=== PATIENT | female | born 1940 | race American Indian/Alaskan Native ===

== ENCOUNTER 2017-09-05 14:14 | Outpatient (CLI) | payer MEDICARE ==
--- NOTE | 2017-09-05 15:24 | XRay Report ---
ROUTINE CHEST, TWO VIEWS: HISTORY: Cough. The trachea, heart, mediastinal contour, lung mccracken and bony thorax are unremarkable. IMPRESSION: Unremarkable chest x-ray.
== END 2017-09-05 14:15 | disposition home or self-care (01) ==
LOC: XRAY 14:14
PROVIDERS: ATTEND Family Medicine
DX: J44.9 Chronic obstructive pulmonary disease, unspecified (principal)
CPT/HCPCS: 71046

== ENCOUNTER 2019-05-10 11:15 | Inpatient (IN) | payer MEDICARE ==
[2019-05-10] MEDS ORDERED: ASPIRIN 325 MG TAB PO ONE (11:51)
--- NOTE | 2019-05-10 11:53 | Event Note ---
ED Screening Note Date of service: 05/10/19 Time: 11:50 ED Screening Note: This is a 79 y.o. F. that presents to the ER with chest pain and SOB for 2 days. Current smoker PMH of COPD This initial assessment/diagnostic orders/clinical plan/treatment(s) is/are subject to change based on patients health status, clinical progression and re- assessment by fellow clinical providers in the ED. Further treatment and workup at subsequent clinical providers discretion. Patient/guardian urged not to elope from the ED as their condition may be serious if not clinically assessed and managed. Initial orders include: Labs, ekg, & cxr
--- NOTE | 2019-05-10 12:31 | XRay Report ---
PA AND LATERAL CXR HISTORY: Chest pain radiating to the upper gastric area, started 2 days ago. COMPARISON: 09/05/2018. FINDINGS: Cardiomediastinal silhouette: Normal cardiac size. Normal mediastinal contours. Lungs: There is a large right pneumothorax. No evidence of midline shift currently. There is resultan t collapse of the majority of the right lung. Pulmonary vascularity: Normal. Support hardware: None. Additional findings: None. IMPRESSION: Large right pneumothorax. These findings were discussed with the ER doctor (Dr. Smith) at 12:25 on 05/10/2019. Signer Name: Lionel Dickey MD Signed: 05/10/2019 12:26 PM Workstation Name: [id number]
[2019-05-10] MEDS ORDERED: LIDOCAINE 1%/EPINEPHRINE 1:100,000 VIAL (20 ML) INFILTRATI ONE ×2 (12:36→12:39)
[2019-05-10] MEDS ORDERED: SODIUM CHLORIDE 0.9% 1000 ML 1,000 ML IV ONE (12:39)
[2019-05-10] MEDS ORDERED: fentaNYL 100 MCG/2 ML INJ IV ONE ×2 (12:46→13:40)
[2019-05-10] MEDS ORDERED: PROPOFOL 200 MG/20 ML VIAL IV ONE (12:47)
--- NOTE | 2019-05-10 12:52 | Emergency Department Report ---
ED General Adult HPI - General Chief complaint: Chest Pain Stated complaint: CHEST TIGHTNESS/COUGH/SOB Time Seen by Provider: 05/10/19 11:50 Source: patient Mode of arrival: Wheelchair Limitations: No Limitations - History of Present Illness Initial comments: 79 female states she had a forceful sneeze 2-3 evenings ago. The following morning she woke up with anterior lower chest pain bilaterally. By today she was becoming somewhat short of breath. She does still smoke. She states that she ate one Frito chip prior to arrival and didn't drink or eat anything since last night. Despite the chest pain and shortness of breath as well as a history of previous cardiac stent, she did not seek medical evaluation. -: Gradual (chest pain and shortness of breath for 1-2 days) Severity scale (0 -10): 0 Associated Symptoms: denies other symptoms - Related Data Allergies Allergy/AdvReac Type Severity Reaction Status Date / Time No Known Allergies Allergy Unverified 05/10/19 11:18 ED Review of Systems ROS: Stated complaint: CHEST TIGHTNESS/COUGH/SOB Other details as noted in HPI Constitutional: denies: chills, fever Eyes: denies: eye pain, eye discharge, vision change ENT: denies: ear pain, throat pain Respiratory: shortness of breath. denies: cough, wheezing Cardiovascular: chest pain. denies: palpitations Endocrine: no symptoms reported Gastrointestinal: denies: abdominal pain, nausea, diarrhea Genitourinary: denies: urgency, dysuria, discharge Musculoskeletal: denies: back pain, joint swelling, arthralgia Skin: denies: rash, lesions Neurological: denies: headache, weakness, paresthesias Psychiatric: denies: anxiety, depression Hematological/Lymphatic: denies: easy bleeding, easy bruising ED Past Medical Hx - Past Medical History Additional medical history: [place] - Surgical History Additional Surgical History: THYROID SURGERY - Social History Smoking Status: Current Every Day Smoker Substance Use Type: Alcohol ED Physical Exam - General Limitations: No Limitations General appearance: alert, in no apparent distress - Head Head exam: Present: atraumatic, normocephalic - Eye Eye exam: Present: normal appearance - ENT ENT exam: Present: mucous membranes moist - Neck Neck exam: Present: normal inspection. Absent: tenderness, meningismus - Respiratory Respiratory exam: Present: other (very decreased sounds on the right normal in the left. Somewhat tachypnea.). Absent: respiratory distress - Cardiovascular Cardiovascular Exam: Present: regular rate, normal rhythm. Absent: systolic murmur, diastolic murmur, rubs, gallop - GI/Abdominal GI/Abdominal exam: Present: soft, normal bowel sounds. Absent: distended, tenderness, guarding, rebound - Extremities Exam Extremities exam: Present: normal inspection - Back Exam Back exam: Present: normal inspection - Neurological Exam Neurological exam: Present: alert, oriented X3 - Psychiatric Psychiatric exam: Present: normal affect, normal mood - Skin Skin exam: Present: warm, dry, intact, normal color. Absent: rash ED Course Vital Signs 05/10/19 05/10/19 11:50 12:42 Temperature 97.9 F 97.7 F Pulse Rate 91 H 95 H Respiratory 18 43 H Rate Blood Pressure 128/86 Blood Pressure 167/99 [Left] O2 Sat by Pulse 97 96 Oximetry - Chest Tube Chest Tube Location: mid axillary line Size of [place]ht[place] Tube (cm): 1 (heimlich catheter) Chest Tube Procedure: betadine prep Anesthesia: 1% Lidocaine w/ Epi Bernal of Air [place]: No Number of Attempts: 1 Post Procedure CXR?: Yes Progress: Postprocedure chest x-ray showed the catheter little bit too far towards the apex. It was withdrawn about 3-4 cm. It was redressed sterilely. Postprocedural x-ray showed good position. ED Medical Decision Making - Lab Data Result diagrams: 05/10/19 12:16 05/10/19 12:16 Laboratory Results - last 24 hr 05/10/19 05/10/19 05/10/19 12:16 12:16 13:39 WBC 4.4 L RBC 4.61 Hgb 14.8 H Hct 44.0 H MCV 96 MCH 32 MCHC 34 RDW 13.6 Plt Count 239 Lymph % (Auto) 40.5 H [place] % (Auto) 13.8 H Eos % (Auto) 2.8 Baso % (Auto) 2.7 H Lymph # 1.8 [place] # 0.6 Eos # 0.1 Baso # 0.1 Seg Neutrophils % 40.2 Seg Neutrophils # 1.8 PT INR APTT Sodium 138 Potassium 3.9 Chloride 100.1 Carbon Dioxide 23 Anion Gap 19 BUN 9 Creatinine 0.7 Estimated GFR > 60 BUN/Creatinine Ratio 13 Glucose 91 Calcium 9.2 Magnesium Total Bilirubin Direct Bilirubin Indirect Bilirubin AST ALT Alkaline Phosphatase Total Creatine Kinase 107 CK-MB (CK-2) 1.7 CK-MB (CK-2) Rel Index 1.5 Troponin T < 0.010 < 0.010 NT-Pro-B Natriuret Pep Total Protein Albumin Albumin/Globulin Ratio 05/10/19 05/10/19 13:39 13:58 WBC RBC Hgb Hct MCV MCH MCHC RDW Plt Count Lymph % (Auto) [place] % (Auto) Eos % (Auto) Baso % (Auto) Lymph # [place] # Eos # Baso # Seg Neutrophils % Seg Neutrophils # PT 14.6 INR 1.12 APTT 29.7 Sodium Potassium Chloride Carbon Dioxide Anion Gap BUN Creatinine Estimated GFR BUN/Creatinine Ratio Glucose Calcium Magnesium 2.00 Total Bilirubin 0.20 Direct Bilirubin < 0.2 Indirect Bilirubin 0.0 AST 25 ALT 18 Alkaline Phosphatase 59 Total Creatine Kinase CK-MB (CK-2) CK-MB (CK-2) Rel Index Troponin T NT-Pro-B Natriuret Pep 115.8 Total Protein 7.6 Albumin 3.7 L Albumin/Globulin Ratio 0.9 - EKG Data -: EKG Interpreted by Ma EKG shows normal: sinus rhythm Rate: normal - EKG Data When compared to previous EKG there are: no significant change Interpretation: no acute changes, other (. She is consistent with PREDNISONE, LVH, PVCS, POOR R-WAVE PROGRESSION, NONSPECIFIC ST-T WAVE CHANGES COULD BE CONSISTENT WITH LVH) - Radiology Data Radiology results: image reviewed (greater than 90% pneumothorax on the right, post-chest tube insertion lung reinflated atelectasis right lower lobe,) Critical care attestation.: If time is entered above; I have spent that time in minutes in the direct care of this critically ill patient, excluding procedure time. ED Disposition Clinical Impression: Pneumothorax on right, Atelectasis of right lung Chest pain Qualifiers: Chest pain type: unspecified Qualified Code(s): R07.9 - Chest pain, unspecified Disposition: OP ADMIT IP TO THIS HOSP Is pt being admited?: Yes Does the pt Need Aspirin: Yes Condition: Stable Instructions: Chest Pain (ED) Time of Disposition: 15:12
[2019-05-10 13:01] LABS: Basophils # (Auto) 0.1 K/mm3 (0.0-0.1); Basophils % (Auto) 2.7 % (0.0-1.8); Eosinophils # (Auto) 0.1 K/mm3 (0.0-0.4); Eosinophils % (Auto) 2.8 % (0.0-4.3); Hemoglobin 14.8 gm/dl (10.1-14.3); Lymphocytes # (Auto) 1.8 K/mm3 (1.2-5.4); Lymphocytes % (Auto) 40.5 % (13.4-35.0); Mean Corpuscular HGB Conc 34 % (30-34); Mean Corpuscular Volume 96 fl (79-97); Monocytes # (Auto) 0.6 K/mm3 (0.0-0.8); Monocytes % (Auto) 13.8 % (0.0-7.3); Platelet Count 239 K/mm3 (140-440); Red Blood Count 4.61 M/mm3 (3.65-5.03); Red Cell Distribution Width 13.6 % (13.2-15.2)
[2019-05-10 13:30] LABS: BUN/Creatinine Ratio 13; Blood Urea Nitrogen 9 mg/dL (7-17); Calcium 9.2 mg/dL (8.4-10.2); Hemolysis Index 20
--- NOTE | 2019-05-10 13:55 | XRay Report ---
CHEST 1 VIEW INDICATION: Status post chest tube placement.. COMPARISON: Radiograph performed earlier the same day. FINDINGS: Support devices: Interval placement of a smallbore right chest tube with distal portion overlying the right lung apex. Heart: Within normal limits. Lungs/Pleura: Previously noted right pneumothorax has resolved. There is reexpansion of the right k[place] with mild right lower lobe subsegmental atelectasis. Additional findings: None. IMPRESSION: Placement of smallbore right chest tube with resolution of previously noted right pneumothorax. There is expansion of the right lung with mild residual right lower lobe subsegmental atelectasis. Signer Name: Lionel Dickey MD Signed: 05/10/2019 1:51 PM Workstation Name: [id number]
[2019-05-10] MEDS ORDERED: cefTRIAXone/NS 1 GM/50 ML 1 GM/50 ML BAG IV ONE (13:56)
[2019-05-10 14:12] LABS: INR 1.12 (0.87-1.13)
[2019-05-10 14:13] LABS: Partial Thromboplastin Time 29.7 Sec. (24.2-36.6)
[2019-05-10 14:20] LABS: Creatine Kinase MB 1.7 ng/mL (0.0-4.0)
[2019-05-10 14:27] LABS: Alanine Aminotransferase 18 units/L (7-56); Albumin 3.7 g/dL (3.9-5)
--- NOTE | 2019-05-10 14:32 | XRay Report ---
CHEST 1 VIEW INDICATION: repositioning chest tube. COMPARISON: Chest radiographs performed earlier the same day. FINDINGS: Support devices: Slight retraction of previously noted right small bore chest tube with tip currently overlying the right lung apex. No significant residual pneumothorax. Persistent subsegmental atelect asis in the right lower lobe. Heart: Within normal limits. Lungs/Pleura: No acute air space or interstitial disease. Additional findings: None. IMPRESSION: Slight retraction of previously noted right small bore chest tube with tip currently overlying the ri ght lung apex. No significant residual pneumothorax. Persistent subsegmental atelectasis in the right lower lobe. Signer Name: Lionel Dickey MD Signed: 05/10/2019 2:27 PM Workstation Name: [id number]
[2019-05-10 14:38] LABS: Bilirubin,Direct < 0.2 mg/dL (0-0.2)
[2019-05-10 15:13] LABS: Amphetamine Screen,Urine PRESUMPTIVE NEGATIVE; Benzodiazepines Screen,Urine PRESUMPTIVE NEGATIVE; Cannabinoid Screen,Urine PRESUMPTIVE NEGATIVE; Cocaine Screen,Urine PRESUMPTIVE NEGATIVE; Methadone Screen,Urine PRESUMPTIVE NEGATIVE; Opiate Screen,Urine PRESUMPTIVE NEGATIVE
[2019-05-10 15:29] LABS: Bilirubin,Urine NEG (Negative); Blood,Urine NEG (Negative); Color,Urine Yellow (Yellow); Mucus,Urine FEW /HPF; Protein,Urine <15 mg/dL mg/dL (Negative); Urobilinogen,Urine < 2.0 mg/dL (<2.0); WBC,Urine < 1.0 /HPF (0.0-6.0)
[2019-05-10] MEDS ORDERED: HYDROmorphone 1 MG/1 ML INJ ONE (18:09)
[2019-05-10] MEDS: HYDROmorphone 1 MG/1 ML INJ IV PRN ×2 (18:10→21:40)
[2019-05-10] MEDS ORDERED: WATER FOR INJ Sterile (PF) 10 ML ONE ×2 (20:23→20:25)
[2019-05-10] MEDS ORDERED: IPRATROPIUM/ALBUTEROL SULFATE 3 ML AMPUL.NEB IH PRN (21:23)
--- NOTE | 2019-05-10 21:23 | History and Physical Report ---
History of Present Illness Date of examination: 05/10/19 Date of admission: 05/10/19 15:12 Chief complaint: Shortness of breath 1 day History of present illness: 79-year-old -[place] female with history of coronary artery disease and a stent in the past comes in for acute chest pain and shortness of breath since morning. Patient is a smoker. Patient attributes it to severe sneezing 2 evenings ago. No fever or chills. Patient became more short of breath since morning and came to the emergency room. In the emergency room patient was found to have a right severe pneumothorax and had a chest tube placed by the ER physician. Some relief of symptoms after the chest tube was placed. Past Medical History Additional medical history: [place] Surgical History Additional Surgical History: THYROID SURGERY Social History Smoking Status: Current Every Day Smoker Substance Use Type: Alcohol Family history Htn Review of Systems ROS: Stated complaint: CHEST TIGHTNESS/COUGH/SOB Other details as noted in HPI Constitutional: denies: chills, fever Eyes: denies: eye pain, eye discharge, vision change ENT: denies: ear pain, throat pain Respiratory: shortness of breath. denies: cough, wheezing Cardiovascular: chest pain. denies: palpitations Endocrine: no symptoms reported Gastrointestinal: denies: abdominal pain, nausea, diarrhea Genitourinary: denies: urgency, dysuria, discharge Musculoskeletal: denies: back pain, joint swelling, arthralgia Skin: denies: rash, lesions Neurological: denies: headache, weakness, paresthesias Psychiatric: denies: anxiety, depression Hematological/Lymphatic: denies: easy bleeding, easy bruising Past History Past Medical History: CAD, hypertension Past Surgical History: Other (Cardiac stent and chest tube placement) Social history: smoking Family history: hypertension Medications and Allergies Allergies Allergy/AdvReac Type Severity Reaction Status Date / Time No Known Allergies Allergy Unverified 05/10/19 11:18 Active Meds: Active Medications Heparin Sodium (Porcine) (Heparin) 5,000 unit SUB-Q Q12HR MEDINA Hydromorphone HCl (Dilaudid) 1 mg IV Q3H PRN PRN Reason: pain Last Admin: 05/10/19 18:10 Dose: 1 mg Documented by: Exam - Physical Exam Narrative exam: Lying in bed in slight distress, chest tube in place on the right side - Constitutional Vitals: Temp Pulse Resp BP Pulse Ox 97.7 F 95 H 43 H 167/99 96 05/10/19 12:42 05/10/19 12:42 05/10/19 12:42 05/10/19 12:42 05/10/19 12:42 General appearance: Present: mild distress, well-nourished - EENT Eyes: Present: PERRL ENT: hearing intact, clear oral mucosa - Neck Neck: Present: supple, normal ROM - Respiratory Respiratory effort: normal Respiratory: right: diminished (Diminished air entry on right side), bilateral: CTA - Cardiovascular Heart rate: 78 Rhythm: regular Heart Sounds: Present: S1 & S2. Absent: rub, click - Extremities Extremities: no ischemia, pulses intact, pulses symmetrical, No edema Peripheral Pulses: within normal limits - Abdominal General gastrointestinal: Present: soft, non-tender, non-distended, normal bowel sounds Female genitourinary: Present: normal - Rectal Rectal Exam: deferred - Integumentary Integumentary: Present: clear, warm, dry - Musculoskeletal Musculoskeletal: gait normal, strength equal bilaterally - Psychiatric Psychiatric: appropriate mood/affect, intact judgment & insight - Neurologic Neurologic: CNII-XII intact, moves all extremities - Allied Health Allied health notes reviewed: nursing, case management Results - Labs CBC & Chem 7: 05/10/19 12:16 05/10/19 12:16 Labs: Laboratory Last Values WBC 4.4 K/mm3 (4.5-11.0) L 05/10/19 12:16 RBC 4.61 M/mm3 (3.65-5.03) 05/10/19 12:16 Hgb 14.8 gm/dl (10.1-14.3) H 05/10/19 12:16 Hct 44.0 % (30.3-42.9) H 05/10/19 12:16 MCV 96 fl (79-97) 05/10/19 12:16 MCH 32 pg (28-32) 05/10/19 12:16 MCHC 34 % (30-34) 05/10/19 12:16 RDW 13.6 % (13.2-15.2) 05/10/19 12:16 Plt Count 239 K/mm3 (140-440) 05/10/19 12:16 Lymph % (Auto) 40.5 % (13.4-35.0) H 05/10/19 12:16 [place] % (Auto) 13.8 % (0.0-7.3) H 05/10/19 12:16 Eos % (Auto) 2.8 % (0.0-4.3) 05/10/19 12:16 Baso % (Auto) 2.7 % (0.0-1.8) H 05/10/19 12:16 Lymph # 1.8 K/mm3 (1.2-5.4) 05/10/19 12:16 [place] # 0.6 K/mm3 (0.0-0.8) 05/10/19 12:16 Eos # 0.1 K/mm3 (0.0-0.4) 05/10/19 12:16 Baso # 0.1 K/mm3 (0.0-0.1) 05/10/19 12:16 Seg Neutrophils % 40.2 % (40.0-70.0) 05/10/19 12:16 Seg Neutrophils # 1.8 K/mm3 (1.8-7.7) 05/10/19 12:16 PT 14.6 Sec. (12.2-14.9) 05/10/19 13:39 INR 1.12 (0.87-1.13) 05/10/19 13:39 APTT 29.7 Sec. (24.2-36.6) 05/10/19 13:39 Sodium 138 mmol/L (137-145) 05/10/19 12:16 Potassium 3.9 mmol/L (3.6-5.0) 05/10/19 12:16 Chloride 100.1 mmol/L (98-107) 05/10/19 12:16 Carbon Dioxide 23 mmol/L (22-30) 05/10/19 12:16 Anion Gap 19 mmol/L 05/10/19 12:16 BUN 9 mg/dL (7-17) 05/10/19 12:16 Creatinine 0.7 mg/dL (0.7-1.2) 05/10/19 12:16 Estimated GFR > 60 ml/min 05/10/19 12:16 BUN/Creatinine Ratio 13 % 05/10/19 12:16 Glucose 91 mg/dL (65-100) 05/10/19 12:16 Calcium 9.2 mg/dL (8.4-10.2) 05/10/19 12:16 Magnesium 2.00 mg/dL (1.7-2.3) 05/10/19 13:58 Total Bilirubin 0.20 mg/dL (0.1-1.2) 05/10/19 13:58 Direct Bilirubin < 0.2 mg/dL (0-0.2) 05/10/19 13:58 Indirect Bilirubin 0.0 mg/dL 05/10/19 13:58 AST 25 units/L (5-40) 05/10/19 13:58 ALT 18 units/L (7-56) 05/10/19 13:58 Alkaline Phosphatase 59 units/L (35-129) 05/10/19 13:58 Total Creatine Kinase 107 units/L (30-135) 05/10/19 13:39 CK-MB (CK-2) 1.7 ng/mL (0.0-4.0) 05/10/19 13:39 CK-MB (CK-2) Rel Index 1.5 (0-4) 05/10/19 13:39 Troponin T < 0.010 ng/mL (0.00-0.029) 05/10/19 17:12 NT-Pro-B Natriuret Pep 115.8 pg/mL (0-900) 05/10/19 13:58 Total Protein 7.6 g/dL (6.3-8.2) 05/10/19 13:58 Albumin 3.7 g/dL (3.9-5) L 05/10/19 13:58 Albumin/Globulin Ratio 0.9 % 05/10/19 13:58 Urine Color Yellow (Yellow) 05/10/19 14:40 Urine Turbidity Clear (Clear) 05/10/19 14:40 Urine pH 5.0 (5.0-7.0) 05/10/19 14:40 Ur Specific [place] 1.011 (1.003-1.030) 05/10/19 14:40 Urine Protein <15 mg/dl mg/dL (Negative) 05/10/19 14:40 Urine Glucose (UA) Neg mg/dL (Negative) 05/10/19 14:40 Urine Ketones Neg mg/dL (Negative) 05/10/19 14:40 Urine Blood Neg (Negative) 05/10/19 14:40 Urine Nitrite Neg (Negative) 05/10/19 14:40 Urine Bilirubin Neg (Negative) 05/10/19 14:40 Urine Urobilinogen < 2.0 mg/dL (<2.0) 05/10/19 14:40 Ur Leukocyte Esterase Neg (Negative) 05/10/19 14:40 Urine WBC (Auto) < 1.0 /HPF (0.0-6.0) 05/10/19 14:40 Urine RBC (Auto) 2.0 /HPF (0.0-6.0) 05/10/19 14:40 U Epithel Cells (Auto) 1.0 /HPF (0-13.0) 05/10/19 14:40 Urine Mucus Few /HPF 05/10/19 14:40 Urine Opiates Screen Presumptive negative 05/10/19 14:40 Urine Methadone Screen Presumptive negative 05/10/19 14:40 Ur Barbiturates Screen Presumptive negative 05/10/19 14:40 Ur Phencyclidine Scrn Presumptive negative 05/10/19 14:40 Ur Amphetamines Screen Presumptive negative 05/10/19 14:40 U Benzodiazepines Scrn Presumptive negative 05/10/19 14:40 Urine Cocaine Screen Presumptive negative 05/10/19 14:40 U Marijuana (THC) Screen Presumptive negative 05/10/19 14:40 Drugs of Abuse Note Disclamer 05/10/19 14:40 - Imaging and Cardiology EKG: report reviewed (Sinus rhythm, 87/min, ventricular premature complexes, right atrial enlargement.) Chest x-ray: report reviewed (Rt pneumothorax) Imaging and Cardiology: Chest x-ray #1 IMPRESSION: Large right pneumothorax. These findings were discussed with the ER doctor (Dr. Smith) at 12:25 on 05/10/2019. Chest x-ray #2 There is expansion of the right lung with mild residual right lower lobe subsegmental atelectasis. Chest x-ray #3 Slight retraction of previously noted right small bore chest tube with tip currently overlying the right lung apex. No significant residual pneumothorax. Persistent subsegmental atelectasis in the right lower lobe. Assessment and Plan Advance Directives: Yes (Full code) VTE prophylaxis?: Chemical Plan of care discussed with patient/family: Yes - Patient Problems (1) Pneumothorax on right Current Visit: Yes Status: Acute Plan to address problem: Patient has chest tube with waterseal Duo nebs 4 times daily and as needed Pulmonary consult requested (2) Coronary artery disease Current Visit: Yes Status: Chronic Qualifiers: Coronary Disease-Associated Artery/Lesion type: [place] artery [place] vs. transplanted heart: [place] heart Plan to address problem: On aspirin 81 mg once a day (3) Nicotine dependence Current Visit: Yes Status: Chronic Qualifiers: Nicotine product type: cigarettes Plan to address problem: Patient counseled about stopping smoking NicoDerm patch (4) DVT prophylaxis Current Visit: Yes Status: Acute Plan to address problem: On heparin and GI prophylaxis
[2019-05-10] MEDS ORDERED: ACETAMINOPHEN 325 MG TAB PO PRN (21:24)
[2019-05-10] MEDS ORDERED: ALBUTEROL 2.5 MG/3 ML NEBU IH PRN (21:37)
[2019-05-10] MEDS: HEPARIN 5,000 UNIT/1 ML VIAL SUB-Q SCH (21:41)
[2019-05-10] MEDS: FAMOTIDINE 20 MG TAB PO SCH (21:45)
[2019-05-10] MEDS: ONDANSETRON 4 MG/2 ML INJ IV PRN (21:54)
[2019-05-10] MEDS: SODIUM CHLORIDE 0.9% 1000 ML 1,000 ML IV SCH (22:41)
[2019-05-10] MEDS: NICOTINE 14 MG/24 HR PATCH TD SCH (22:43)
[2019-05-11 03:28] LABS: Basophils % (Auto) 0.5 % (0.0-1.8); Eosinophils % (Auto) 0.3 % (0.0-4.3); Hematocrit 41.2 % (30.3-42.9); Hemoglobin 13.6 gm/dl (10.1-14.3); Lymphocytes # (Auto) 0.9 K/mm3 (1.2-5.4); Lymphocytes % (Auto) 13.1 % (13.4-35.0); Mean Corpuscular HGB Conc 33 % (30-34); Mean Corpuscular Volume 95 fl (79-97); Monocytes # (Auto) 0.5 K/mm3 (0.0-0.8); Monocytes % (Auto) 6.4 % (0.0-7.3); Platelet Count 207 K/mm3 (140-440); Red Blood Count 4.35 M/mm3 (3.65-5.03); Red Cell Distribution Width 13.2 % (13.2-15.2)
[2019-05-11 04:32] LABS: Alanine Aminotransferase 15 units/L (7-56); Albumin 3.8 g/dL (3.9-5); BUN/Creatinine Ratio 15; Blood Urea Nitrogen 9 mg/dL (7-17); Hemolysis Index 6
[2019-05-11] MEDS: HYDROmorphone 1 MG/1 ML INJ IV PRN ×3 (08:21→23:27)
[2019-05-11] MEDS: IPRATROPIUM/ALBUTEROL SULFATE 3 ML AMPUL.NEB IH SCH ×4 (08:35→19:46)
--- NOTE | 2019-05-11 09:17 | Progress Note ---
Assessment and Plan Assessment and plan: Patient is a 79-year-old -[place] woman with a history of coronary artery disease with stent and tobacco dependency who presents to [facility] ED with chest pains and shortness of breath. In the emergency room, patient was found to have a right severe pneumothorax and had a chest tube placed by the ER physician. Some relief of symptoms after the chest tube was placed. Patient attributes it to severe sneezing 2 evenings ago. * EKG: report reviewed (Sinus rhythm, 87/min, ventricular premature complexes, right atrial enlargement.) * Chest x-ray #1 IMPRESSION: Large right pneumothorax. These findings were discussed with the ER doctor (Dr. Smith) at 12:25 on 05/10/2019. * Chest x-ray #2 Impression: There is expansion of the right lung with mild residual right lower lobe subsegmental atelectasis. * Chest x-ray #3 Impression: Slight retraction of previously noted right small bore chest tube with tip currently overlying the right lung apex. No significant residual pneumothorax. Persistent subsegmental atelectasis in the right lower lobe. Pneumothorax on right Patient has chest tube with waterseal Duo nebs 4 times daily and as needed Pulmonary consult requested Coronary artery disease On aspirin 81 mg once a day Nicotine dependence Patient counseled about stopping smoking NicoDerm patch DVT prophylaxis On heparin and GI prophylaxis History Interval history: Patient was seen and examined. Follow-up on current diagnosis of PTX. No overnight events reported to me. Patient denies any nausea/vomiting or severe headaches. Imaging, nursing note, chart, labs and old chart reviewed. Discussed with patient. Hospitalist Physical - Physical exam Narrative exam: Gen: WDWN, NAD, Awake, Alert, Orientated HEENT: NCAT, EOMI, PERRL, OP Clear Neck: supple, no adenopathy, no thyromegaly, no JVD CVS/Heart: RRR, normal S1S2, pulses present bilaterally Chest/Lungs: diminished, chest tube present, Symmetrical chest expansion, good air entry bilaterally GI/Abdomen: soft, NTND, good bowel sounds, no guarding or rebound /Bladder: no suprapubic tenderness, no CVA or paraspinal tenderness Extermity/Skin: no c/c/e, no obvious rash MSK: FROM x 4 Neuro: CN 2-12 grossly intact, no new focal deficits Psych: calm - Constitutional Vitals: Temp Pulse Resp BP Pulse Ox 98.1 F 79 20 141/70 99 05/11/19 03:40 05/11/19 08:57 05/11/19 08:57 05/11/19 03:40 05/11/19 08:36 General appearance: Present: well-nourished Results - Labs CBC & Chem 7: 05/11/19 02:35 05/11/19 02:35 Labs: Laboratory Last Values WBC 7.2 K/mm3 (4.5-11.0) 05/11/19 02:35 RBC 4.35 M/mm3 (3.65-5.03) 05/11/19 02:35 Hgb 13.6 gm/dl (10.1-14.3) 05/11/19 02:35 Hct 41.2 % (30.3-42.9) 05/11/19 02:35 MCV 95 fl (79-97) 05/11/19 02:35 MCH 31 pg (28-32) 05/11/19 02:35 MCHC 33 % (30-34) 05/11/19 02:35 RDW 13.2 % (13.2-15.2) 05/11/19 02:35 Plt Count 207 K/mm3 (140-440) 05/11/19 02:35 Lymph % (Auto) 13.1 % (13.4-35.0) L 05/11/19 02:35 [place] % (Auto) 6.4 % (0.0-7.3) 05/11/19 02:35 Eos % (Auto) 0.3 % (0.0-4.3) 05/11/19 02:35 Baso % (Auto) 0.5 % (0.0-1.8) 05/11/19 02:35 Lymph # 0.9 K/mm3 (1.2-5.4) L 05/11/19 02:35 Holt # 0.5 K/mm3 (0.0-0.8) 05/11/19 02:35 Eos # 0.0 K/mm3 (0.0-0.4) 05/11/19 02:35 Baso # 0.0 K/mm3 (0.0-0.1) 05/11/19 02:35 Seg Neutrophils % 79.7 % (40.0-70.0) H 05/11/19 02:35 Seg Neutrophils # 5.7 K/mm3 (1.8-7.7) 05/11/19 02:35 PT 14.6 Sec. (12.2-14.9) 05/10/19 13:39 INR 1.12 (0.87-1.13) 05/10/19 13:39 APTT 29.7 Sec. (24.2-36.6) 05/10/19 13:39 Sodium 145 mmol/L (137-145) D 05/11/19 02:35 Potassium 4.6 mmol/L (3.6-5.0) 05/11/19 02:35 Chloride 107.9 mmol/L (98-107) H 05/11/19 02:35 Carbon Dioxide 23 mmol/L (22-30) 05/11/19 02:35 Anion Gap 19 mmol/L 05/11/19 02:35 BUN 9 mg/dL (7-17) 05/11/19 02:35 Creatinine 0.6 mg/dL (0.7-1.2) L 05/11/19 02:35 Estimated GFR > 60 ml/min 05/11/19 02:35 BUN/Creatinine Ratio 15 % 05/11/19 02:35 Glucose 125 mg/dL (65-100) H 05/11/19 02:35 Hemoglobin A1c 6.0 % (4-6) 05/11/19 02:35 Calcium 9.0 mg/dL (8.4-10.2) 05/11/19 02:35 Magnesium 2.00 mg/dL (1.7-2.3) 05/10/19 13:58 Total Bilirubin 0.30 mg/dL (0.1-1.2) 05/11/19 02:35 Direct Bilirubin < 0.2 mg/dL (0-0.2) 05/10/19 13:58 Indirect Bilirubin 0.0 mg/dL 05/10/19 13:58 AST 18 units/L (5-40) 05/11/19 02:35 ALT 15 units/L (7-56) 05/11/19 02:35 Alkaline Phosphatase 56 units/L (35-129) 05/11/19 02:35 Total Creatine Kinase 107 units/L (30-135) 05/10/19 13:39 CK-MB (CK-2) 1.7 ng/mL (0.0-4.0) 05/10/19 13:39 CK-MB (CK-2) Rel Index 1.5 (0-4) 05/10/19 13:39 Troponin T < 0.010 ng/mL (0.00-0.029) 05/10/19 17:12 NT-Pro-B Natriuret Pep 115.8 pg/mL (0-900) 05/10/19 13:58 Total Protein 7.3 g/dL (6.3-8.2) 05/11/19 02:35 Albumin 3.8 g/dL (3.9-5) L 05/11/19 02:35 Albumin/Globulin Ratio 1.1 % 05/11/19 02:35 Urine Color Yellow (Yellow) 05/10/19 14:40 Urine Turbidity Clear (Clear) 05/10/19 14:40 Urine pH 5.0 (5.0-7.0) 05/10/19 14:40 Ur Specific [place] 1.011 (1.003-1.030) 05/10/19 14:40 Urine Protein <15 mg/dl mg/dL (Negative) 05/10/19 14:40 Urine Glucose (UA) Neg mg/dL (Negative) 05/10/19 14:40 Urine Ketones Neg mg/dL (Negative) 05/10/19 14:40 Urine Blood Neg (Negative) 05/10/19 14:40 Urine Nitrite Neg (Negative) 05/10/19 14:40 Urine Bilirubin Neg (Negative) 05/10/19 14:40 Urine Urobilinogen < 2.0 mg/dL (<2.0) 05/10/19 14:40 Ur Leukocyte Esterase Neg (Negative) 05/10/19 14:40 Urine WBC (Auto) < 1.0 /HPF (0.0-6.0) 05/10/19 14:40 Urine RBC (Auto) 2.0 /HPF (0.0-6.0) 05/10/19 14:40 U Epithel Cells (Auto) 1.0 /HPF (0-13.0) 05/10/19 14:40 Urine Mucus Few /HPF 05/10/19 14:40 Urine Opiates Screen Presumptive negative 05/10/19 14:40 Urine Methadone Screen Presumptive negative 05/10/19 14:40 Ur Barbiturates Screen Presumptive negative 05/10/19 14:40 Ur Phencyclidine Scrn Presumptive negative 05/10/19 14:40 Ur Amphetamines Screen Presumptive negative 05/10/19 14:40 U Benzodiazepines Scrn Presumptive negative 05/10/19 14:40 Urine Cocaine Screen Presumptive negative 05/10/19 14:40 U Marijuana (THC) Screen Presumptive negative 05/10/19 14:40 Drugs of Abuse Note Disclamer 05/10/19 14:40 Active Medications - Current Medications Current Medications: Generic Name Dose Route Start Last Admin Trade Name Freq PRN Reason Stop Dose Admin Acetaminophen 650 mg 05/10/19 21:24 Tylenol PO Q4H PRN Pain MILD(1-3)/Fever >100.5/KAHN Albuterol 2.5 mg 05/10/19 21:37 Proventil IH Q3HRT PRN Wheezing Albuterol/Ipratropium 1 ampul 05/11/19 08:00 05/11/19 08:35 Duoneb *Not For Prn Use* IH 1 ampul QIDRT [facility] Administration Aspirin 81 mg 05/11/19 10:00 Halfprin Ec PO QDAY [facility] Famotidine 20 mg 05/10/19 22:00 05/10/19 21:45 Pepcid PO 20 mg BID [facility] Administration Heparin Sodium (Porcine) 5,000 unit 05/10/19 22:00 05/10/19 21:41 Heparin SUB-Q 5,000 unit Q12HR [facility] Administration Hydromorphone HCl 1 mg 05/10/19 18:05 05/11/19 08:21 Dilaudid IV 1 mg Q3H PRN Administration pain Sodium Chloride 1,000 mls @ 75 mls/hr 05/10/19 21:30 05/10/19 22:41 Nacl 0.9% 1000 Ml IV 75 mls/hr DIRECT [facility] Administration Ceftriaxone Sodium 2 gm in 100 mls @ 200 mls/hr 05/11/19 10:00 Rocephin/Ns 2 Gm/100 Ml IV Q24HR [facility] Protocol Metoclopramide HCl 10 mg 05/10/19 21:24 Reglan IV Q6H PRN Nausea And Vomiting Nicotine 14 mg 05/10/19 22:00 05/10/19 22:43 Habitrol TD 14 mg QDAY@2200 [facility] Administration Ondansetron HCl 4 mg 05/10/19 21:24 05/10/19 21:54 Zofran IV 4 mg Q3H PRN Administration Nausea And Vomiting Sodium Chloride 10 ml 05/10/19 22:00 05/10/19 22:43 Sodium Chloride Flush Syringe 10 Ml IV 10 ml BID [facility] Administration Sodium Chloride 10 ml 05/10/19 21:24 Sodium Chloride Flush Syringe 10 Ml IV PRN PRN LINE FLUSH
[2019-05-11] MEDS: METOCLOPRAMIDE 10 MG/2 ML INJ IV PRN (09:46)
[2019-05-11] MEDS: ASPIRIN EC 81 MG TAB PO SCH (09:47)
[2019-05-11] MEDS: FAMOTIDINE 20 MG TAB PO SCH ×2 (09:47→21:27)
[2019-05-11] MEDS: HEPARIN 5,000 UNIT/1 ML VIAL SUB-Q SCH ×2 (09:48→21:27)
[2019-05-11] MEDS: cefTRIAXone/NS 2 GM/100 ML 2 GM/100 ML BAG IV SCH (10:38)
[2019-05-11] MEDS: SODIUM CHLORIDE 0.9% 1000 ML 1,000 ML IV SCH (10:41)
--- NOTE | 2019-05-11 12:51 | Consultation ---
History of Present Illness Consult date: 05/11/19 Requesting physician: OMAIRA BENJAMIN Reason for consult: pneumothorax (Right; spontaneous) History of present illness: PULMONARY/CCM CONSULT NOTE (Full dictation # [id number]) Please see dictated notes for full details Past History Past Medical History: CAD, hypertension Past Surgical History: Other (Cardiac stent and chest tube placement) Social history: smoking Family history: hypertension Medications and Allergies Allergies Allergy/AdvReac Type Severity Reaction Status Date / Time No Known Allergies Allergy Unverified 05/10/19 11:18 Home Medications Medication Instructions Recorded Confirmed Last Taken Type Adults Multivitamin Caplet 1 cap PO DAILY 05/11/19 05/11/19 05/10/19 History Aspirin [Aspirin BABY CHEW TAB] 81 mg PO QDAY 05/11/19 05/11/19 05/10/19 History Lopressor 50 mg PO BID 05/11/19 05/11/19 05/10/19 History Simvastatin 40 mg PO QPM 05/11/19 05/11/19 05/10/19 History Active Meds: Active Medications Acetaminophen (Tylenol) 650 mg PO Q4H PRN PRN Reason: Pain MILD(1-3)/Fever >100.5/KAHN Albuterol (Proventil) 2.5 mg IH Q3HRT PRN PRN Reason: Wheezing Albuterol/Ipratropium (Duoneb *Not For Prn Use*) 1 ampul IH QIDRT [facility] Last Admin: 05/11/19 08:35 Dose: 1 ampul Documented by: Aspirin (Halfprin Ec) 81 mg PO QDAY [facility] Last Admin: 05/11/19 09:47 Dose: 81 mg Documented by: Famotidine (Pepcid) 20 mg PO BID [facility] Last Admin: 05/11/19 09:47 Dose: 20 mg Documented by: Heparin Sodium (Porcine) (Heparin) 5,000 unit SUB-Q Q12HR [facility] Last Admin: 05/11/19 09:48 Dose: 5,000 unit Documented by: Hydromorphone HCl (Dilaudid) 1 mg IV Q3H PRN PRN Reason: pain Last Admin: 05/11/19 08:21 Dose: 1 mg Documented by: Sodium Chloride (Nacl 0.9% 1000 Ml) 1,000 mls @ 75 mls/hr IV DIRECT [facility] Last Admin: 05/11/19 10:41 Dose: 75 mls/hr Documented by: Ceftriaxone Sodium (Rocephin/Ns 2 Gm/100 Ml) 2 gm in 100 mls @ 200 mls/hr IV Q24HR [facility]; Protocol Last Admin: 05/11/19 10:38 Dose: 200 mls/hr Documented by: Metoclopramide HCl (Reglan) 10 mg IV Q6H PRN PRN Reason: Nausea And Vomiting Last Admin: 05/11/19 09:46 Dose: 10 mg Documented by: Nicotine (Habitrol) 14 mg TD QDAY@2200 [facility] Last Admin: 05/10/19 22:43 Dose: 14 mg Documented by: Ondansetron HCl (Zofran) 4 mg IV Q3H PRN PRN Reason: Nausea And Vomiting Last Admin: 05/10/19 21:54 Dose: 4 mg Documented by: Sodium Chloride (Sodium Chloride Flush Syringe 10 Ml) 10 ml IV BID [facility] Last Admin: 05/11/19 10:38 Dose: 10 ml Documented by: Sodium Chloride (Sodium Chloride Flush Syringe 10 Ml) 10 ml IV PRN PRN PRN Reason: LINE FLUSH Physical Examination Vital signs: Vital Signs Temp Pulse Resp BP Pulse Ox 97.9 F 91 H 18 128/86 97 05/10/19 11:50 05/10/19 11:50 05/10/19 11:50 05/10/19 11:50 05/10/19 11:50 Results - Laboratory Findings CBC and BMP: 05/11/19 02:35 05/11/19 02:35 PT/INR, D-dimer PT 14.6 Sec. (12.2-14.9) 05/10/19 13:39 INR 1.12 (0.87-1.13) 05/10/19 13:39 Abnormal lab findings: Abnormal Labs 05/10/19 05/10/19 05/11/19 12:16 13:58 02:35 WBC 4.4 L Hgb 14.8 H Hct 44.0 H Lymph % (Auto) 40.5 H 13.1 L [place] % (Auto) 13.8 H Baso % (Auto) 2.7 H Lymph # 0.9 L Seg Neutrophils % 79.7 H Chloride Creatinine Glucose Albumin 3.7 L 05/11/19 02:35 WBC Hgb Hct Lymph % (Auto) [place] % (Auto) Baso % (Auto) Lymph # Seg Neutrophils % Chloride 107.9 H Creatinine 0.6 L Glucose 125 H Albumin 3.8 L
--- NOTE | 2019-05-11 12:56 | Consultation ---
History of Present Illness Consult date: 05/11/19 Chief complaint: pneumothorax - History of present illness History of present illness: 79 yo F with long standing history of smoking cigarettes presented to hospital with acute onset midsternal chest pain and shortness of breath. She states she had a very forceful sneeze and the pain started right after. She went to her PCP and was sent to the emergency room. In the ER she was found to have a large right sided pneumothorax. A chest tube was placed with resolution of the pneumothorax. Patient states she feels better. She c/o soreness and chest tube insertion site. No shortness of breath or chest pain. She has never had a p neumothorax before. Past History Past Medical History: CAD, hypertension Past Surgical History: Other (Cardiac stent and chest tube placement) Social history: smoking Family history: hypertension Medications and Allergies Allergies Allergy/AdvReac Type Severity Reaction Status Date / Time No Known Allergies Allergy Unverified 05/10/19 11:18 Home Medications Medication Instructions Recorded Confirmed Last Taken Type Adults Multivitamin Caplet 1 cap PO DAILY 05/11/19 05/11/19 05/10/19 History Aspirin [Aspirin BABY CHEW TAB] 81 mg PO QDAY 05/11/19 05/11/19 05/10/19 History Lopressor 50 mg PO BID 05/11/19 05/11/19 05/10/19 History Simvastatin 40 mg PO QPM 05/11/19 05/11/19 05/10/19 History Active Meds: Active Medications Acetaminophen (Tylenol) 650 mg PO Q4H PRN PRN Reason: Pain MILD(1-3)/Fever >100.5/KAHN Albuterol (Proventil) 2.5 mg IH Q3HRT PRN PRN Reason: Wheezing Albuterol/Ipratropium (Duoneb *Not For Prn Use*) 1 ampul IH QIDRT [facility] Last Admin: 05/11/19 08:35 Dose: 1 ampul Documented by: Aspirin (Halfprin Ec) 81 mg PO QDAY [facility] Last Admin: 05/11/19 09:47 Dose: 81 mg Documented by: Famotidine (Pepcid) 20 mg PO BID [facility] Last Admin: 05/11/19 09:47 Dose: 20 mg Documented by: Heparin Sodium (Porcine) (Heparin) 5,000 unit SUB-Q Q12HR [facility] Last Admin: 05/11/19 09:48 Dose: 5,000 unit Documented by: Hydromorphone HCl (Dilaudid) 1 mg IV Q3H PRN PRN Reason: pain Last Admin: 05/11/19 08:21 Dose: 1 mg Documented by: Sodium Chloride (Nacl 0.9% 1000 Ml) 1,000 mls @ 75 mls/hr IV DIRECT [facility] Last Admin: 05/11/19 10:41 Dose: 75 mls/hr Documented by: Ceftriaxone Sodium (Rocephin/Ns 2 Gm/100 Ml) 2 gm in 100 mls @ 200 mls/hr IV Q24HR [facility]; Protocol Last Admin: 05/11/19 10:38 Dose: 200 mls/hr Documented by: Metoclopramide HCl (Reglan) 10 mg IV Q6H PRN PRN Reason: Nausea And Vomiting Last Admin: 05/11/19 09:46 Dose: 10 mg Documented by: Nicotine (Habitrol) 14 mg TD QDAY@2200 [facility] Last Admin: 05/10/19 22:43 Dose: 14 mg Documented by: Ondansetron HCl (Zofran) 4 mg IV Q3H PRN PRN Reason: Nausea And Vomiting Last Admin: 05/10/19 21:54 Dose: 4 mg Documented by: Sodium Chloride (Sodium Chloride Flush Syringe 10 Ml) 10 ml IV BID [facility] Last Admin: 05/11/19 10:38 Dose: 10 ml Documented by: Sodium Chloride (Sodium Chloride Flush Syringe 10 Ml) 10 ml IV PRN PRN PRN Reason: LINE FLUSH Review of Systems All systems: negative (10 pt ROS performed and negative except for that listed in HPI) Exam Vital Signs Temp Pulse Resp BP Pulse Ox 97.9 F 91 H 18 128/86 97 05/10/19 11:50 05/10/19 11:50 05/10/19 11:50 05/10/19 11:50 05/10/19 11:50 Narrative exam: Gen: AAOx3. NAD ENT: no scleral icterus CV: s1, S2+ Resp: even and unlabored. R chest tube in place with scant serous fluid in tubing. Dressing c/d/i. On water seal. One bubble of air evacuated with forceful cough, no leak thereafter with multiple forced coughs. Ext: no c/c/e Results - Labs 05/11/19 02:35 05/11/19 02:35 Abnormal lab results 05/10/19 05/10/19 05/11/19 Range/Units 12:16 13:58 02:35 WBC 4.4 L (4.5-11.0) K/mm3 Hgb 14.8 H (10.1-14.3) gm/dl Hct 44.0 H (30.3-42.9) % Lymph % (Auto) 40.5 H 13.1 L (13.4-35.0) % [place] % (Auto) 13.8 H (0.0-7.3) % Baso % (Auto) 2.7 H (0.0-1.8) % Lymph # 0.9 L (1.2-5.4) K/mm3 Seg Neutrophils % 79.7 H (40.0-70.0) % Chloride (98-107) mmol/L Creatinine (0.7-1.2) mg/dL Glucose (65-100) mg/dL Albumin 3.7 L (3.9-5) g/dL 05/11/19 Range/Units 02:35 WBC (4.5-11.0) K/mm3 Hgb (10.1-14.3) gm/dl Hct (30.3-42.9) % Lymph % (Auto) (13.4-35.0) % [place] % (Auto) (0.0-7.3) % Baso % (Auto) (0.0-1.8) % Lymph # (1.2-5.4) K/mm3 Seg Neutrophils % (40.0-70.0) % Chloride 107.9 H (98-107) mmol/L Creatinine 0.6 L (0.7-1.2) mg/dL Glucose 125 H (65-100) mg/dL Albumin 3.8 L (3.9-5) g/dL Diabetes panel 05/10/19 05/10/19 05/11/19 Range/Units 12:16 13:58 02:35 Sodium 138 145 D (137-145) mmol/L Potassium 3.9 4.6 (3.6-5.0) mmol/L Chloride 100.1 107.9 H (98-107) mmol/L Carbon Dioxide 23 23 (22-30) mmol/L BUN 9 9 (7-17) mg/dL Creatinine 0.7 0.6 L (0.7-1.2) mg/dL Glucose 91 125 H (65-100) mg/dL Hemoglobin A1c (4-6) % Calcium 9.2 9.0 (8.4-10.2) mg/dL AST 25 18 (5-40) units/L ALT 18 15 (7-56) units/L Alkaline Phosphatase 59 56 (35-129) units/L Total Protein 7.6 7.3 (6.3-8.2) g/dL Albumin 3.7 L 3.8 L (3.9-5) g/dL 05/11/19 Range/Units 02:35 Sodium (137-145) mmol/L Potassium (3.6-5.0) mmol/L Chloride (98-107) mmol/L Carbon Dioxide (22-30) mmol/L BUN (7-17) mg/dL Creatinine (0.7-1.2) mg/dL Glucose (65-100) mg/dL Hemoglobin A1c 6.0 (4-6) % Calcium (8.4-10.2) mg/dL AST (5-40) units/L ALT (7-56) units/L Alkaline Phosphatase (35-129) units/L Total Protein (6.3-8.2) g/dL Albumin (3.9-5) g/dL Calcium panel 05/10/19 05/10/19 05/11/19 Range/Units 12:16 13:58 02:35 Calcium 9.2 9.0 (8.4-10.2) mg/dL Albumin 3.7 L 3.8 L (3.9-5) g/dL Pituitary panel 05/10/19 05/11/19 Range/Units 12:16 02:35 Sodium 138 145 D (137-145) mmol/L Potassium 3.9 4.6 (3.6-5.0) mmol/L Chloride 100.1 107.9 H (98-107) mmol/L Carbon Dioxide 23 23 (22-30) mmol/L BUN 9 9 (7-17) mg/dL Creatinine 0.7 0.6 L (0.7-1.2) mg/dL Glucose 91 125 H (65-100) mg/dL Calcium 9.2 9.0 (8.4-10.2) mg/dL Adrenal panel 05/10/19 05/10/19 05/11/19 Range/Units 12:16 13:58 02:35 Sodium 138 145 D (137-145) mmol/L Potassium 3.9 4.6 (3.6-5.0) mmol/L Chloride 100.1 107.9 H (98-107) mmol/L Carbon Dioxide 23 23 (22-30) mmol/L BUN 9 9 (7-17) mg/dL Creatinine 0.7 0.6 L (0.7-1.2) mg/dL Glucose 91 125 H (65-100) mg/dL Calcium 9.2 9.0 (8.4-10.2) mg/dL Total Bilirubin 0.20 0.30 (0.1-1.2) mg/dL AST 25 18 (5-40) units/L ALT 18 15 (7-56) units/L Alkaline Phosphatase 59 56 (35-129) units/L Total Protein 7.6 7.3 (6.3-8.2) g/dL Albumin 3.7 L 3.8 L (3.9-5) g/dL - Imaging Chest x-ray: report reviewed, image reviewed Assessment and Plan 79 yo f with spontaneous right pneumothorax s/p chest tube placement by ER CXR 05/10/19 and 05/11/19 images reviewed - no PTX on 05/10, small apical PTX on 05/11 XR. Chest tube in good position Plan: 1. Incentive spirometer given to patient and education performed 2. Pulmonary toilet 3. smoking cessation 4. Place chest tube to -[id number] suction 5. Repeat CXR in am tomorrow 6. Pulm on board. Thank you, please call with questions.
[2019-05-11] MEDS: NICOTINE 14 MG/24 HR PATCH TD SCH (21:27)
[2019-05-12] MEDS: SODIUM CHLORIDE 0.9% 1000 ML 1,000 ML IV SCH (02:35)
[2019-05-12] MEDS: HYDROmorphone 1 MG/1 ML INJ IV PRN (08:19)
--- NOTE | 2019-05-12 09:07 | XRay Report ---
CHEST 1 VIEW INDICATION / CLINICAL INFORMATION: ptx. COMPARISON: 05/11/2019 FINDINGS: SUPPORT DEVICES: Right pleural catheter is unchanged in position. HEART / MEDIASTINUM: No significant abnormality. LUNGS / PLEURA: Mild bibasilar subsegmental atelectasis. The right pneumothorax has resolved. ADDITIONAL FINDINGS: No significant additional findings. IMPRESSION: 1. No pneumothorax. Signer Name: Issa Perez MD Signed: 05/12/2019 9:03 AM Workstation Name: [employer]
[2019-05-12] MEDS: cefTRIAXone/NS 2 GM/100 ML 2 GM/100 ML BAG IV SCH (09:33)
[2019-05-12] MEDS: HEPARIN 5,000 UNIT/1 ML VIAL SUB-Q SCH ×3 (09:34→22:00)
[2019-05-12] MEDS: ASPIRIN EC 81 MG TAB PO SCH (09:34)
[2019-05-12] MEDS: METOCLOPRAMIDE 10 MG/2 ML INJ IV PRN (09:34)
[2019-05-12] MEDS: FAMOTIDINE 20 MG TAB PO SCH ×3 (09:34→22:00)
[2019-05-12] MEDS: IPRATROPIUM/ALBUTEROL SULFATE 3 ML AMPUL.NEB IH SCH ×3 (09:36→20:58)
[2019-05-12] MEDS: METOPROLOL TARTRATE 50 MG TAB PO SCH ×3 (09:39→22:00)
[2019-05-12] MEDS ORDERED: LOPRESSOR 50 MG PO SCH (10:00)
--- NOTE | 2019-05-12 10:55 | Progress Note ---
Assessment and Plan Assessment and plan: Patient is a 79-year-old -[place] woman with a history of coronary artery disease with stent and tobacco dependency who [facility] with chest pains and shortness of breath. In the emergency room, patient was found to have a right severe pneumothorax and had a chest tube placed by the ER physician. Some relief of symptoms after the chest tube was placed. Patient attributes it to severe sneezing 2 evenings ago. * EKG: report reviewed (Sinus rhythm, 87/min, ventricular premature complexes, right atrial enlargement.) * Chest x-ray #1 IMPRESSION: Large right pneumothorax. These findings were discussed with the ER doctor (Dr. Smith) at 12:25 on 05/10/2019. * Chest x-ray #2 Impression: There is expansion of the right lung with mild residual right lower lobe subsegmental atelectasis. * Chest x-ray #3 Impression: Slight retraction of previously noted right small bore chest tube with tip currently overlying the right lung apex. No significant residual pneumothorax. Persistent subsegmental atelectasis in the right lower lobe. Pneumothorax on right Patient has chest tube to LIS ordered CXR which showed resolved PTX Duo nebs 4 times daily and as needed Pulmonary consult requested GS evaluated and changed waterseal to LIS yesterday Coronary artery disease On aspirin 81 mg once a day Nicotine dependence Patient counseled about stopping smoking NicoDerm patch DVT prophylaxis On heparin and GI prophylaxis History Interval history: Patient was seen and examined. Follow-up on current diagnosis of PTX. No overnight events reported to me. Patient denies any nausea/vomiting or severe headaches. Imaging, nursing note, chart, labs and old chart reviewed. Discussed with patient. Hospitalist Physical - Physical exam Narrative exam: Gen: WDWN, NAD, Awake, Alert, Orientated HEENT: NCAT, EOMI, PERRL, OP Clear Neck: supple, no adenopathy, no thyromegaly, no JVD CVS/Heart: RRR, normal S1S2, pulses present bilaterally Chest/Lungs: diminished, chest tube present, Symmetrical chest expansion, good air entry bilaterally GI/Abdomen: soft, NTND, good bowel sounds, no guarding or rebound /Bladder: no suprapubic tenderness, no CVA or paraspinal tenderness Extermity/Skin: no c/c/e, no obvious rash MSK: FROM x 4 Neuro: CN 2-12 grossly intact, no new focal deficits Psych: calm - Constitutional Vitals: Temp Pulse Resp BP Pulse Ox 98.4 F 67 18 150/74 97 05/12/19 08:50 05/12/19 10:00 05/12/19 10:00 05/12/19 08:50 05/12/19 10:00 General appearance: Present: well-nourished Results - Labs CBC & Chem 7: 05/11/19 02:35 05/11/19 02:35 Labs: Laboratory Last Values WBC 7.2 K/mm3 (4.5-11.0) 05/11/19 02:35 RBC 4.35 M/mm3 (3.65-5.03) 05/11/19 02:35 Hgb 13.6 gm/dl (10.1-14.3) 05/11/19 02:35 Hct 41.2 % (30.3-42.9) 05/11/19 02:35 MCV 95 fl (79-97) 05/11/19 02:35 MCH 31 pg (28-32) 05/11/19 02:35 MCHC 33 % (30-34) 05/11/19 02:35 RDW 13.2 % (13.2-15.2) 05/11/19 02:35 Plt Count 207 K/mm3 (140-440) 05/11/19 02:35 Lymph % (Auto) 13.1 % (13.4-35.0) L 05/11/19 02:35 [place] % (Auto) 6.4 % (0.0-7.3) 05/11/19 02:35 Eos % (Auto) 0.3 % (0.0-4.3) 05/11/19 02:35 Baso % (Auto) 0.5 % (0.0-1.8) 05/11/19 02:35 Lymph # 0.9 K/mm3 (1.2-5.4) L 05/11/19 02:35 [place] # 0.5 K/mm3 (0.0-0.8) 05/11/19 02:35 Eos # 0.0 K/mm3 (0.0-0.4) 05/11/19 02:35 Baso # 0.0 K/mm3 (0.0-0.1) 05/11/19 02:35 Seg Neutrophils % 79.7 % (40.0-70.0) H 05/11/19 02:35 Seg Neutrophils # 5.7 K/mm3 (1.8-7.7) 05/11/19 02:35 PT 14.6 Sec. (12.2-14.9) 05/10/19 13:39 INR 1.12 (0.87-1.13) 05/10/19 13:39 APTT 29.7 Sec. (24.2-36.6) 05/10/19 13:39 Sodium 145 mmol/L (137-145) D 05/11/19 02:35 Potassium 4.6 mmol/L (3.6-5.0) 05/11/19 02:35 Chloride 107.9 mmol/L (98-107) H 05/11/19 02:35 Carbon Dioxide 23 mmol/L (22-30) 05/11/19 02:35 Anion Gap 19 mmol/L 05/11/19 02:35 BUN 9 mg/dL (7-17) 05/11/19 02:35 Creatinine 0.6 mg/dL (0.7-1.2) L 05/11/19 02:35 Estimated GFR > 60 ml/min 05/11/19 02:35 BUN/Creatinine Ratio 15 % 05/11/19 02:35 Glucose 125 mg/dL (65-100) H 05/11/19 02:35 Hemoglobin A1c 6.0 % (4-6) 05/11/19 02:35 Calcium 9.0 mg/dL (8.4-10.2) 05/11/19 02:35 Magnesium 2.00 mg/dL (1.7-2.3) 05/10/19 13:58 Total Bilirubin 0.30 mg/dL (0.1-1.2) 05/11/19 02:35 Direct Bilirubin < 0.2 mg/dL (0-0.2) 05/10/19 13:58 Indirect Bilirubin 0.0 mg/dL 05/10/19 13:58 AST 18 units/L (5-40) 05/11/19 02:35 ALT 15 units/L (7-56) 05/11/19 02:35 Alkaline Phosphatase 56 units/L (35-129) 05/11/19 02:35 Total Creatine Kinase 107 units/L (30-135) 05/10/19 13:39 CK-MB (CK-2) 1.7 ng/mL (0.0-4.0) 05/10/19 13:39 CK-MB (CK-2) Rel Index 1.5 (0-4) 05/10/19 13:39 Troponin T < 0.010 ng/mL (0.00-0.029) 05/10/19 17:12 NT-Pro-B Natriuret Pep 115.8 pg/mL (0-900) 05/10/19 13:58 Total Protein 7.3 g/dL (6.3-8.2) 05/11/19 02:35 Albumin 3.8 g/dL (3.9-5) L 05/11/19 02:35 Albumin/Globulin Ratio 1.1 % 05/11/19 02:35 Urine Color Yellow (Yellow) 05/10/19 14:40 Urine Turbidity Clear (Clear) 05/10/19 14:40 Urine pH 5.0 (5.0-7.0) 05/10/19 14:40 Ur Specific [place] 1.011 (1.003-1.030) 05/10/19 14:40 Urine Protein <15 mg/dl mg/dL (Negative) 05/10/19 14:40 Urine Glucose (UA) Neg mg/dL (Negative) 05/10/19 14:40 Urine Ketones Neg mg/dL (Negative) 05/10/19 14:40 Urine Blood Neg (Negative) 05/10/19 14:40 Urine Nitrite Neg (Negative) 05/10/19 14:40 Urine Bilirubin Neg (Negative) 05/10/19 14:40 Urine Urobilinogen < 2.0 mg/dL (<2.0) 05/10/19 14:40 Ur Leukocyte Esterase Neg (Negative) 05/10/19 14:40 Urine WBC (Auto) < 1.0 /HPF (0.0-6.0) 05/10/19 14:40 Urine RBC (Auto) 2.0 /HPF (0.0-6.0) 05/10/19 14:40 U Epithel Cells (Auto) 1.0 /HPF (0-13.0) 05/10/19 14:40 Urine Mucus Few /HPF 05/10/19 14:40 Urine Opiates Screen Presumptive negative 05/10/19 14:40 Urine Methadone Screen Presumptive negative 05/10/19 14:40 Ur Barbiturates Screen Presumptive negative 05/10/19 14:40 Ur Phencyclidine Scrn Presumptive negative 05/10/19 14:40 Ur Amphetamines Screen Presumptive negative 05/10/19 14:40 U Benzodiazepines Scrn Presumptive negative 05/10/19 14:40 Urine Cocaine Screen Presumptive negative 05/10/19 14:40 U Marijuana (THC) Screen Presumptive negative 05/10/19 14:40 Drugs of Abuse Note Disclamer 05/10/19 14:40 Active Medications - Current Medications Current Medications: Generic Name Dose Route Start Last Admin Trade Name Freq PRN Reason Stop Dose Admin Acetaminophen 650 mg 05/10/19 21:24 Tylenol PO Q4H PRN Pain MILD(1-3)/Fever >100.5/KAHN Acetaminophen/Hydrocodone Bitart 1 each 05/12/19 08:17 Kiefer 10/325 PO Q4H PRN Pain , Severe (7-10) Albuterol 2.5 mg 05/10/19 21:37 Proventil IH Q3HRT PRN Wheezing Albuterol/Ipratropium 1 ampul 05/12/19 08:00 05/12/19 09:36 Duoneb *Not For Prn Use* IH 1 ampul TIDRT MEDINA Administration Aspirin 81 mg 05/11/19 10:00 05/12/19 09:34 Halfprin Ec PO 81 mg QDAY MEDINA Administration Famotidine 20 mg 05/10/19 22:00 05/12/19 09:34 Pepcid PO 20 mg BID MEDINA Administration Heparin Sodium (Porcine) 5,000 unit 05/10/19 22:00 05/12/19 09:34 Heparin SUB-Q 5,000 unit Q12HR MEDINA Administration Hydromorphone HCl 1 mg 05/10/19 18:05 05/12/19 08:19 Dilaudid IV 1 mg Q3H PRN Administration pain Sodium Chloride 1,000 mls @ 75 mls/hr 05/10/19 21:30 05/12/19 02:35 Nacl 0.9% 1000 Ml IV 75 mls/hr DIRECT MEDINA Administration Ceftriaxone Sodium 2 gm in 100 mls @ 200 mls/hr 05/11/19 10:00 05/12/19 09:33 Rocephin/Ns 2 Gm/100 Ml IV 200 mls/hr Q24HR MEDINA Administration Protocol Metoclopramide HCl 10 mg 05/10/19 21:24 05/12/19 09:34 Reglan IV 10 mg Q6H PRN Administration Nausea And Vomiting Metoprolol Tartrate 50 mg 05/12/19 10:00 05/12/19 09:39 Metoprolol PO 50 mg BID MEDINA Administration Nicotine 14 mg 05/10/19 22:00 05/11/19 21:27 Habitrol TD 14 mg QDAY@2200 MEDINA Administration Ondansetron HCl 4 mg 05/10/19 21:24 05/10/19 21:54 Zofran IV 4 mg Q3H PRN Administration Nausea And Vomiting Pravastatin Sodium 80 mg 05/12/19 18:00 Pravachol PO QPM MEDINA Sodium Chloride 10 ml 05/10/19 22:00 05/12/19 09:35 Sodium Chloride Flush Syringe 10 Ml IV 10 ml BID MEDINA Administration Sodium Chloride 10 ml 05/10/19 21:24 Sodium Chloride Flush Syringe 10 Ml IV PRN PRN LINE FLUSH
--- NOTE | 2019-05-12 11:59 | Progress Note ---
Assessment and Plan 79 yo f with spontaneous right pneumothorax s/p chest tube placement by ER CXR 05/12/19 - no PTX Plan: 1. continue incentive spirometry, deep breathing exercises 2. Pulmonary toilet 3. smoking cessation 4. Place chest tube to water seal 5. Repeat CXR in am tomorrow 6. Pulm on board. 7. Ibuprofen 800mg PO q8H prn for pain 8. bowel regimen for constipation 9. reserve IV pain medications for severe or breakthrough pain Discussed plan with patient's RN. Thank you, please call with questions. Subjective Date of service: 05/12/19 Narrative: Pt seen and examined. Feels well. Soreness at chest tube insertion site. No f/c. Denies shortness of breath. Objective Vital Signs - 12hr 05/12/19 05/12/19 05/12/19 04:15 05:57 08:00 Temperature 98.1 F Pulse Rate 74 Pulse Rate [ 64 Anterior Bilateral Throughout] Pulse Rate [ 68 Posterior Bilateral Throughout] Respiratory 20 Rate Respiratory 20 Rate [Anterior Bilateral Throughout] Respiratory 20 Rate [Posterior Bilateral Throughout] Blood Pressure 145/77 O2 Sat by Pulse 100 99 Oximetry 05/12/19 05/12/19 05/12/19 08:50 09:38 10:00 Temperature 98.4 F Pulse Rate 67 67 Pulse Rate [ Anterior Bilateral Throughout] Pulse Rate [ Posterior Bilateral Throughout] Respiratory 20 18 Rate Respiratory Rate [Anterior Bilateral Throughout] Respiratory Rate [Posterior Bilateral Throughout] Blood Pressure 150/74 O2 Sat by Pulse 97 97 97 Oximetry - General physical appearance Narrative Exam: Gen: AAOx3. NAD CV: S1, S2+ Resp: even and unlabored. R chest tube dressing c/d/i. No leak. On suction Ext: no c/c/e - Labs 05/11/19 02:35 05/11/19 02:35
[2019-05-12] MEDS ORDERED: IBUPROFEN 800 MG TAB PO PRN (12:00)
[2019-05-12] MEDS: DOCUSATE SODIUM 100 MG CAP PO SCH ×2 (12:16→20:45)
[2019-05-12] MEDS: POLYETHYLENE GLYCOL 3350 17 GM POWDER PO SCH (12:16)
--- NOTE | 2019-05-12 15:14 | Progress Note ---
Subjective Date of service: 05/12/19 Interval history: Patient is seen today for: Seen and examined at bedside; 24hour events reviewed; nursing and respiratory care staff consulted; no adverse overnight events reported to me; Objective Vital Signs - 12hr 05/12/19 05/12/19 05/12/19 04:15 05:57 08:00 Temperature 98.1 F Pulse Rate 74 Pulse Rate [ 64 Anterior Bilateral Throughout] Pulse Rate [ 68 Posterior Bilateral Throughout] Respiratory 20 Rate Respiratory 20 Rate [Anterior Bilateral Throughout] Respiratory 20 Rate [Posterior Bilateral Throughout] Blood Pressure 145/77 O2 Sat by Pulse 100 99 Oximetry 05/12/19 05/12/19 05/12/19 08:50 09:38 10:00 Temperature 98.4 F Pulse Rate 67 67 Pulse Rate [ Anterior Bilateral Throughout] Pulse Rate [ Posterior Bilateral Throughout] Respiratory 20 18 Rate Respiratory Rate [Anterior Bilateral Throughout] Respiratory Rate [Posterior Bilateral Throughout] Blood Pressure 150/74 O2 Sat by Pulse 97 97 97 Oximetry CBC and BMP: 05/11/19 02:35 05/11/19 02:35 ABG, PT/INR, D-dimer: PT/INR, D-dimer PT 14.6 Sec. (12.2-14.9) 05/10/19 13:39 INR 1.12 (0.87-1.13) 05/10/19 13:39 Abnormal lab findings: Abnormal Labs 05/10/19 05/10/19 05/11/19 12:16 13:58 02:35 WBC 4.4 L Hgb 14.8 H Hct 44.0 H Lymph % (Auto) 40.5 H 13.1 L [place] % (Auto) 13.8 H Baso % (Auto) 2.7 H Lymph # 0.9 L Seg Neutrophils % 79.7 H Chloride Creatinine Glucose Albumin 3.7 L 05/11/19 02:35 WBC Hgb Hct Lymph % (Auto) [place] % (Auto) Baso % (Auto) Lymph # Seg Neutrophils % Chloride 107.9 H Creatinine 0.6 L Glucose 125 H Albumin 3.8 L
[2019-05-12] MEDS ORDERED: NON-FORMULARY EACH (Simvastatin 40 MG) PO SCH (18:00)
[2019-05-12] MEDS ORDERED: PRAVASTATIN 80 MG TAB PO SCH (18:00)
--- NOTE | 2019-05-12 19:56 | Consultation ---
PULMONARY CONSULTATION NOTE CONSULTING PHYSICIAN: Dr. Lewis. REASON FOR CONSULTATION: Acute pneumothorax. CHIEF COMPLAINT AND HISTORY OF PRESENT ILLNESS: The patient is a 79-year-old -[place] female with past medical history significant amongst other things for a 20+ pack year tobacco smoker, who tries to minimize her tobacco use according to her next of kin in the room. She stated that prior to going to bed on the day of presentation, she had been dealing with a lot of upper respiratory tract symptoms. She had a really profound bout of sneezing and coughing the night before. When she woke up, she noticed trouble getting air into her lungs, right-sided chest pain lower chest and seemed to also involve the left side. She thought she was having a heart attack. She denied any radiation. She denied any chest wall trauma. She denied any hemoptysis. She came into the Emergency Room, thinking that she actually was having a cardiac arrest. She apparently also has a history of coronary artery disease. In the Emergency Room, she was found diagnosed with a complete right lung collapse. A chest tube was placed. She was admitted to the medical floor where we are asked to assist with management. When I stopped by to see her, she was resting in bed, the chest tube had just been connected to continuous wall suction after being seen by the surgeon, she felt much better. She denies any prior history of pneumothorax. She denies any prior pulmonary history despite her overall facies and chest x-ray suggesting COPD. She denies any history of childhood asthma or any pulmonary problems. This really is as much of the history of presentation as I have. PAST MEDICAL HISTORY: Apparently coronary artery disease, hypertension, history of hyperlipidemia. PAST SURGICAL HISTORY: She has had thyroid surgery. MEDICATIONS: She was on at the time I stopped by to see her were reviewed. Pertinent medications include are the following: Tylenol 650 mg p.o. q. 4 hours p.r.n. mild pain or fevers, DuoNeb nebulizer treatments scheduled q.i.d., aspirin 81 mg p.o. daily, Pepcid 20 mg p.o. b.i.d., heparin 5000 units subcutaneous q. 12 hours, Dilaudid 1 mg IV q. 3 hours p.r.n. severe pain, Rocephin 1 gram IV daily, Reglan 10 mg IV q. 6 hours p.r.n. nausea and vomiting, nicotine 14 mg transdermal patch per day, Zofran 4 mg IV q. 3 hours p.r.n. nausea and vomiting. ALLERGIES: No known drug allergies. DIET: Thin lady. Denies acute weight loss or gain in the preceding few weeks to months. FAMILY AND SOCIAL HISTORY: Apparently lives in the community. She has about a 20+ pack year tobacco smoking history, was smoking up until the presentation. Denies any significant family history, otherwise except for hypertension. Denies alcohol or illicit drug use or abuse. REVIEW OF SYSTEMS: No loss of consciousness. No new onset seizures. No new onset focal weakness. No gross hematochezia or melena. No gross hematuria or dysuria. No hematemesis. No hemoptysis. No new onset lumps, bumps, or swellings on her body. Denies polydipsia. Denies polyuria. Denies heat or cold intolerance. Complete 13-system review of systems obtained. Pertinent positives and/or negatives as in body of history above, otherwise noncontributory. PHYSICAL EXAMINATION: VITAL SIGNS: At presentation, she was afebrile, temperature 97.9 degrees Fahrenheit with a pulse of 91, respiratory rate of 18, blood pressure 128/86, O2 sats were 97%, inspired oxygen concentration at that time was not recorded. When I stopped by to see her, O2 sats were 98% that was on 2 liters nasal cannula. GENERAL: She is an elderly looking -[place] female, normocephalic, atraumatic, talking to me in full sentences, but with mildly increased respiratory effort at rest. HEAD, EYES, EARS, NOSE AND THROAT: She was anicteric, no conjunctival erythema. Oropharynx was moist. Mallampati #2. No gross jugular venous distention, no thyromegaly. Grossly, no palpable lymph nodes in the supraclavicular or submandibular lymph node chains. LUNGS: Auscultation of both lung mccracken revealed diminished bilateral breath sounds, slightly prolonged expiratory phase; however, clear bilaterally. HEART: Heart sounds 1 and 2 are heard. They were regular in rate and rhythm at time of my evaluation without overt rubs or murmurs. ABDOMEN: Soft, flat. Bowel sounds are positive, nontender, no palpable hepatosplenomegaly. EXTREMITIES: Without overt digital clubbing or cyanosis, no pedal edema. Pedal pulses were 2+ bilaterally and strong. NEUROLOGIC: Pupils were equal, round, about 4 mm, reactive to light. Extraocular muscle movements were intact. She moves all 4 extremities spontaneously. SKIN: Normal turgor without overt cellulitis or rash. PSYCHIATRIC: Her mood was normal. Affect was appropriate. She showed intact judgment and insight. LABORATORY DATA: From my review were as follows: Admission white cell count 4400 with a hemoglobin of 14.8, hematocrit of 44.0, platelet count 239. No manual differential. INR was 1.12. Serum sodium 138, potassium 3.9, chloride 100, bicarbonate 23, BUN 9, creatinine 0.7, glucose was 91. Liver function test within normal limits. Troponin within normal limits. Cardiac enzymes within normal limits. Urinalysis was unremarkable. Urine drug screen was presumptive negative. No microbiology studies. The chest x-ray definitely showed a large right pneumothorax with complete collapse of the right lung, post-insertion of the chest tube. There is almost complete reexpansion and the most recent chest x-ray shows perhaps some migration of the chest tube outside, but the tip is still at the apex of right lung. ASSESSMENT: 1. Acute spontaneous pneumothorax, first occurrence. 2. Likely chronic obstructive pulmonary disease based on the clinical and radiographic characteristics. 3. Tobacco use disorder. 4. History of coronary artery disease. 5. Hypertension. PLAN: This is her first occurrence. She is a long-term smoker. She is also tall and thin in stature and certainly at risk for spontaneous pneumothorax. I do not really see any reason for CT scan of the chest. Certainly, if there is a recurrence or if any other abnormality was noted on the reexpanded lung that one will have been appropriate, I will defer to surgeon for management of the chest tube. She has been connected to continuous wall suction appropriately by the surgeon. She is using the incentive spirometer. Tobacco abstinence was strongly counseled for really almost over 10 minutes at the bedside throughout my evaluation. She plans to stop smoking. I have offered her chemical assistance and other assistance. She will be followed out in the pulmonary outpatient clinic when she is discharged. She is appropriately on GI and DVT prophylaxis. A 5-day course of empiric community-acquired pneumonia. Actually, I do not see any indication for antibiotic therapy and I will empirically recommend that we stop the Rocephin and follow up clinically. The DuoNeb treatments will be made t.i.d. She will need full pulmonary function testing as when she is discharged. Flu and pneumonia vaccination will be addressed per protocol. Thank you very much for the consult, Dr. Lewis. We will follow along. We will make further recommendations as picture progresses/becomes clearer. JOB# [id number] MAISHA/NTS
[2019-05-12] MEDS: PRAVASTATIN 80 MG TAB PO SCH ×2 (20:43→22:00)
[2019-05-12] MEDS: HYDROcodone/ACETAMINOPHEN 10-325MG TAB PO PRN (20:44)
[2019-05-12] MEDS: NICOTINE 14 MG/24 HR PATCH TD SCH ×2 (20:45→22:00)
--- NOTE | 2019-05-13 03:11 | Event Note ---
Date: 05/13/19 called about dislodged chest tube CXR reviewed and no gross pneumothorax patient stable per RN - observe closely - re-evaluate in am.
--- NOTE | 2019-05-13 03:15 | XRay Report ---
CHEST 1 VIEW INDICATION: hypertension. COMPARISON: Exam is compared to earlier the same day FINDINGS: SUPPORT DEVICES: Removal of a small chest tube right hemithorax HEART / MEDIASTINUM: No significant abnormality. LUNGS / PLEURA: A small 5% right pneumothorax is noted removal of the right chest tube. Subcutaneous emphysema is present along the right chest wall and right supraclavicular region. ADDITIONAL FINDINGS: IMPRESSION: 1. Recurrent small right pneumothorax post chest tube removal Signer Name: Shan Paz MD Signed: 05/13/2019 3:11 AM Workstation Name: [id number]
[2019-05-13] MEDS: DOCUSATE SODIUM 100 MG CAP PO SCH ×3 (04:59→21:59)
[2019-05-13] MEDS: IPRATROPIUM/ALBUTEROL SULFATE 3 ML AMPUL.NEB IH SCH ×3 (08:17→21:05)
--- NOTE | 2019-05-13 08:23 | Event Note ---
Date: 05/13/19 Patient chart reviewed. Per RN notes patient's chest tube was completely dislodged overnight. Surgery was not notified. Repeat CXR performed overnight shows recurrence of right apical PTX with new subcutaneous emphysema. Patient's VSS appear stable in [facility]. Chest tube will need to be replaced. Consult placed to IR for CT guided chest tube placement. Patient made NPO. Discussed with Dr. Mclain.
[2019-05-13] MEDS: HEPARIN 5,000 UNIT/1 ML VIAL SUB-Q SCH ×2 (09:43→21:59)
[2019-05-13] MEDS: ASPIRIN EC 81 MG TAB PO SCH (09:43)
[2019-05-13] MEDS: METOPROLOL TARTRATE 50 MG TAB PO SCH ×2 (09:44→21:59)
[2019-05-13] MEDS: FAMOTIDINE 20 MG TAB PO SCH ×2 (09:44→21:58)
[2019-05-13] MEDS: cefTRIAXone/NS 2 GM/100 ML 2 GM/100 ML BAG IV SCH (09:44)
[2019-05-13] MEDS: POLYETHYLENE GLYCOL 3350 17 GM POWDER PO SCH (09:44)
--- NOTE | 2019-05-13 11:05 | Progress Note ---
Assessment and Plan Assessment and plan: Patient is a 79-year-old -Bur[place] woman with a history of coronary artery disease with stent and tobacco dependency who presents to [facility] ED with chest pains and shortness of breath. In the emergency room, patient was found to have a right severe pneumothorax and had a chest tube placed by the ER physician. Some relief of symptoms after the chest tube was placed. Patient attributes it to severe sneezing 2 evenings ago. * EKG: report reviewed (Sinus rhythm, 87/min, ventricular premature complexes, right atrial enlargement.) * Chest x-ray #1 IMPRESSION: Large right pneumothorax. These findings were discussed with the ER doctor (Dr. Smith) at 12:25 on 05/10/2019. * Chest x-ray #2 Impression: There is expansion of the right lung with mild residual right lower lobe subsegmental atelectasis. * Chest x-ray #3 Impression: Slight retraction of previously noted right small bore chest tube with tip currently overlying the right lung apex. No significant residual pneumothorax. Persistent subsegmental atelectasis in the right lower lobe. 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 Follow-up on current diagnosis of PTX. No overnight events reported to me. Patient denies any nausea/vomiting or severe headaches. Imaging, nursing note, chart, labs and old chart reviewed. Discussed with patient. Hospitalist Physical - Physical exam Narrative exam: Gen: WDWN, NAD, Awake, Alert, Orientated HEENT: NCAT, EOMI, PERRL, OP Clear Neck: supple, no adenopathy, no thyromegaly, no JVD CVS/Heart: RRR, normal S1S2, pulses present bilaterally Chest/Lungs: diminished, chest tube present, Symmetrical chest expansion, good air entry bilaterally GI/Abdomen: soft, NTND, good bowel sounds, no guarding or rebound /Bladder: no suprapubic tenderness, no CVA or paraspinal tenderness Extermity/Skin: no c/c/e, no obvious rash MSK: FROM x 4 Neuro: CN 2-12 grossly intact, no new focal deficits Psych: calm - Constitutional Vitals: Temp Pulse Resp BP Pulse Ox 98.2 F 90 18 149/79 97 05/13/19 10:14 05/13/19 10:14 05/13/19 10:14 05/13/19 10:14 05/13/19 10:14 General appearance: Present: well-nourished Results - Labs CBC & Chem 7: 05/11/19 02:35 05/11/19 02:35 Labs: Laboratory Last Values WBC 7.2 K/mm3 (4.5-11.0) 05/11/19 02:35 RBC 4.35 M/mm3 (3.65-5.03) 05/11/19 02:35 Hgb 13.6 gm/dl (10.1-14.3) 05/11/19 02:35 Hct 41.2 % (30.3-42.9) 05/11/19 02:35 MCV 95 fl (79-97) 05/11/19 02:35 MCH 31 pg (28-32) 05/11/19 02:35 MCHC 33 % (30-34) 05/11/19 02:35 RDW 13.2 % (13.2-15.2) 05/11/19 02:35 Plt Count 207 K/mm3 (140-440) 05/11/19 02:35 Lymph % (Auto) 13.1 % (13.4-35.0) L 05/11/19 02:35 [place] % (Auto) 6.4 % (0.0-7.3) 05/11/19 02:35 Eos % (Auto) 0.3 % (0.0-4.3) 05/11/19 02:35 Baso % (Auto) 0.5 % (0.0-1.8) 05/11/19 02:35 Lymph # 0.9 K/mm3 (1.2-5.4) L 05/11/19 02:35 [place]man # 0.5 K/mm3 (0.0-0.8) 05/11/19 02:35 Eos # 0.0 K/mm3 (0.0-0.4) 05/11/19 02:35 Baso # 0.0 K/mm3 (0.0-0.1) 05/11/19 02:35 Seg Neutrophils % 79.7 % (40.0-70.0) H 05/11/19 02:35 Seg Neutrophils # 5.7 K/mm3 (1.8-7.7) 05/11/19 02:35 PT 14.6 Sec. (12.2-14.9) 05/10/19 13:39 INR 1.12 (0.87-1.13) 05/10/19 13:39 APTT 29.7 Sec. (24.2-36.6) 05/10/19 13:39 Sodium 145 mmol/L (137-145) D 05/11/19 02:35 Potassium 4.6 mmol/L (3.6-5.0) 05/11/19 02:35 Chloride 107.9 mmol/L (98-107) H 05/11/19 02:35 Carbon Dioxide 23 mmol/L (22-30) 05/11/19 02:35 Anion Gap 19 mmol/L 05/11/19 02:35 BUN 9 mg/dL (7-17) 05/11/19 02:35 Creatinine 0.6 mg/dL (0.7-1.2) L 05/11/19 02:35 Estimated GFR > 60 ml/min 05/11/19 02:35 BUN/Creatinine Ratio 15 % 05/11/19 02:35 Glucose 125 mg/dL (65-100) H 05/11/19 02:35 Hemoglobin A1c 6.0 % (4-6) 05/11/19 02:35 Calcium 9.0 mg/dL (8.4-10.2) 05/11/19 02:35 Magnesium 2.00 mg/dL (1.7-2.3) 05/10/19 13:58 Total Bilirubin 0.30 mg/dL (0.1-1.2) 05/11/19 02:35 Direct Bilirubin < 0.2 mg/dL (0-0.2) 05/10/19 13:58 Indirect Bilirubin 0.0 mg/dL 05/10/19 13:58 AST 18 units/L (5-40) 05/11/19 02:35 ALT 15 units/L (7-56) 05/11/19 02:35 Alkaline Phosphatase 56 units/L (35-129) 05/11/19 02:35 Total Creatine Kinase 107 units/L (30-135) 05/10/19 13:39 CK-MB (CK-2) 1.7 ng/mL (0.0-4.0) 05/10/19 13:39 CK-MB (CK-2) Rel Index 1.5 (0-4) 05/10/19 13:39 Troponin T < 0.010 ng/mL (0.00-0.029) 05/10/19 17:12 NT-Pro-B Natriuret Pep 115.8 pg/mL (0-900) 05/10/19 13:58 Total Protein 7.3 g/dL (6.3-8.2) 05/11/19 02:35 Albumin 3.8 g/dL (3.9-5) L 05/11/19 02:35 Albumin/Globulin Ratio 1.1 % 05/11/19 02:35 Urine Color Yellow (Yellow) 05/10/19 14:40 Urine Turbidity Clear (Clear) 05/10/19 14:40 Urine pH 5.0 (5.0-7.0) 05/10/19 14:40 Ur Specific [place] 1.011 (1.003-1.030) 05/10/19 14:40 Urine Protein <15 mg/dl mg/dL (Negative) 05/10/19 14:40 Urine Glucose (UA) Neg mg/dL (Negative) 05/10/19 14:40 Urine Ketones Neg mg/dL (Negative) 05/10/19 14:40 Urine Blood Neg (Negative) 05/10/19 14:40 Urine Nitrite Neg (Negative) 05/10/19 14:40 Urine Bilirubin Neg (Negative) 05/10/19 14:40 Urine Urobilinogen < 2.0 mg/dL (<2.0) 05/10/19 14:40 Ur Leukocyte Esterase Neg (Negative) 05/10/19 14:40 Urine WBC (Auto) < 1.0 /HPF (0.0-6.0) 05/10/19 14:40 Urine RBC (Auto) 2.0 /HPF (0.0-6.0) 05/10/19 14:40 U Epithel Cells (Auto) 1.0 /HPF (0-13.0) 05/10/19 14:40 Urine Mucus Few /HPF 05/10/19 14:40 Urine Opiates Screen Presumptive negative 05/10/19 14:40 Urine Methadone Screen Presumptive negative 05/10/19 14:40 Ur Barbiturates Screen Presumptive negative 05/10/19 14:40 Ur Phencyclidine Scrn Presumptive negative 05/10/19 14:40 Ur Amphetamines Screen Presumptive negative 05/10/19 14:40 U Benzodiazepines Scrn Presumptive negative 05/10/19 14:40 Urine Cocaine Screen Presumptive negative 05/10/19 14:40 U Marijuana (THC) Screen Presumptive negative 05/10/19 14:40 Drugs of Abuse Note Disclamer 05/10/19 14:40 Active Medications - Current Medications Current Medications: Generic Name Dose Route Start Last Admin Trade Name Freq PRN Reason Stop Dose Admin Acetaminophen 650 mg 05/10/19 21:24 Tylenol PO Q4H PRN Pain MILD(1-3)/Fever >100.5/KAHN Acetaminophen/Hydrocodone Bitart 1 each 05/12/19 08:17 05/12/19 20:44 Steele 10/325 PO 1 each Q4H PRN Administration Pain , Severe (7-10) Albuterol 2.5 mg 05/10/19 21:37 Proventil IH Q3HRT PRN Wheezing Albuterol/Ipratropium 1 ampul 05/12/19 08:00 05/13/19 08:17 Duoneb *Not For Prn Use* IH 1 ampul TIDRT MEDINA Administration Aspirin 81 mg 05/11/19 10:00 05/13/19 09:43 Halfprin Ec PO 81 mg QDAY MEDINA Administration Docusate Sodium 100 mg 05/12/19 12:00 05/13/19 09:44 Colace PO 100 mg BID MEDINA Administration Famotidine 20 mg 05/10/19 22:00 05/13/19 09:44 Pepcid PO 20 mg BID MEDINA Administration Heparin Sodium (Porcine) 5,000 unit 05/10/19 22:00 05/13/19 09:43 Heparin SUB-Q 5,000 unit Q12HR MEDINA Administration Hydromorphone HCl 1 mg 05/10/19 18:05 05/12/19 08:19 Dilaudid IV 1 mg Q3H PRN Administration pain Ceftriaxone Sodium 2 gm in 100 mls @ 200 mls/hr 05/11/19 10:00 05/13/19 09:44 Rocephin/Ns 2 Gm/100 Ml IV 200 mls/hr Q24HR MEDINA Administration Protocol Ibuprofen 800 mg 05/12/19 12:00 05/12/19 16:47 Ibuprofen PO 800 mg Q8H PRN Administration Pain, Mild (1-3) Metoclopramide HCl 10 mg 05/10/19 21:24 05/12/19 09:34 Reglan IV 10 mg Q6H PRN Administration Nausea And Vomiting Metoprolol Tartrate 50 mg 05/12/19 10:00 05/13/19 09:44 Metoprolol PO 50 mg BID MEDINA Administration Nicotine 14 mg 05/10/19 22:00 05/12/19 22:00 Habitrol TD Not Given QDAY@2200 MEDINA Ondansetron HCl 4 mg 05/10/19 21:24 05/10/19 21:54 Zofran IV 4 mg Q3H PRN Administration Nausea And Vomiting Polyethylene Glycol 17 gm 05/12/19 12:00 05/13/19 09:44 Miralax 3350 PO 17 gm QDAY MEDINA Administration Pravastatin Sodium 80 mg 05/12/19 22:00 05/12/19 22:00 Pravachol PO Not Given QHS MEDINA Sodium Chloride 10 ml 05/10/19 22:00 05/13/19 09:45 Sodium Chloride Flush Syringe 10 Ml IV 10 ml BID MEDINA Administration Sodium Chloride 10 ml 05/10/19 21:24 Sodium Chloride Flush Syringe 10 Ml IV PRN PRN LINE FLUSH
[2019-05-13] MEDS ORDERED: fentaNYL 100 MCG/2 ML INJ IV NR (11:33)
[2019-05-13] MEDS ORDERED: MIDAZOLAM 5 MG/5 ML INJ MDV IV NR (11:33)
--- NOTE | 2019-05-13 11:46 | XRay Report ---
CHEST 1 VIEW INDICATION: pneumothorax. COMPARISON: Previous day. FINDINGS: Support devices: Small bore right-sided chest tube unchanged. Small right apical pneumothorax slightl y larger. Heart: Within normal limits. Lungs/Pleura: Improving atelectasis right base. Mild increasing atelectasis left base. Additional findings: None. IMPRESSION: 1. Small right apical pneumothorax slightly larger. 2. Improving atelectasis right base. 3. Increasing atelectasis left base. Signer Name: Tj West MD Signed: 05/11/2019 10:33 AM Workstation Name: [id number]
[2019-05-13] MEDS ORDERED: SODIUM CHLORIDE 0.9% 500 ML 0 ML ONE (12:04)
[2019-05-13] MEDS ORDERED: MIDAZOLAM 5 MG/5 ML INJ MDV IV ONE (12:05)
[2019-05-13] MEDS ORDERED: fentaNYL 100 MCG/2 ML INJ ONE (12:06)
[2019-05-13] MEDS ORDERED: LIDOCAINE 1%/EPINEPHRINE 1:100,000 VIAL (20 ML) INFILTRATI ONE (13:10)
--- NOTE | 2019-05-13 14:22 | Progress Note ---
Assessment and Plan Patient alert, awake resting on room air. oxygen saturation 99%. patient is afebrile with no leukocytosis.Patient admitted for right pneumothorax. Patient has right chest tube placement. CXR showing expansion of the right lung. No acute respiratory distress. patient has a history of smoking 3 cigarettes/day for 45 years and counseled to stop smoking. Patient retired from working in [employer]. she is a with 4 children. No known drug allergies. - Patient Problems (1) Pneumothorax on right Current Visit: Yes Status: Acute Plan to address problem: Right chest tube placement. Right lung appears to be expanded (2) Coronary artery disease Current Visit: Yes Status: Chronic Qualifiers: Coronary Disease-Associated Artery/Lesion type: [place] artery [place] vs. transplanted heart: [place] heart Plan to address problem: Management as per primary care team (3) Nicotine dependence Current Visit: Yes Status: Chronic Qualifiers: Nicotine product type: cigarettes Plan to address problem: Can Feeder to stop smoking Subjective Date of service: 05/13/19 Interval history: patient alert, awake resting on room air. oxygen saturation 99%. patient is afebrile with no leukocytosis.Patient admitted for right pneumothorax. Patient has right chest tube placement. CXR showing expansion of the right lung. No acute respiratory distress. patient has a history of smoking 3 cigarettes/day for 45 years and counseled to stop smoking. Patient retired from working in [employer]. she is a with 4 children. No known drug allergies. Objective Vital Signs - 12hr 05/13/19 05/13/19 05/13/19 03:08 08:17 09:37 Temperature 97.9 F Pulse Rate 70 Pulse Rate [ 80 Anterior Bilateral Throughout] Pulse Rate [ Intra-Procedure ] Pulse Rate [ Post-Procedure] Pulse Rate [ 82 Posterior Bilateral Throughout] Respiratory 18 Rate Respiratory 18 Rate [Anterior Bilateral Throughout] Respiratory Rate [Intra- Procedure] Respiratory Rate [Post- Procedure] Respiratory 18 Rate [Posterior Bilateral Throughout] Blood Pressure 161/85 Blood Pressure [Intra- Procedure] Blood Pressure [Post-Procedure ] O2 Sat by Pulse 99 97 Oximetry O2 Sat by Pulse Oximetry [ Intra-Procedure ] O2 Sat by Pulse Oximetry [Post -Procedure] 05/13/19 05/13/19 05/13/19 10:14 13:16 13:27 Temperature 98.2 F Pulse Rate 90 Pulse Rate [ Anterior Bilateral Throughout] Pulse Rate [ 73 65 Intra-Procedure ] Pulse Rate [ Post-Procedure] Pulse Rate [ Posterior Bilateral Throughout] Respiratory 18 Rate Respiratory Rate [Anterior Bilateral Throughout] Respiratory 20 18 Rate [Intra- Procedure] Respiratory Rate [Post- Procedure] Respiratory Rate [Posterior Bilateral Throughout] Blood Pressure 149/79 Blood Pressure 169/76 140/72 [Intra- Procedure] Blood Pressure [Post-Procedure ] O2 Sat by Pulse 97 Oximetry O2 Sat by Pulse 100 98 Oximetry [ Intra-Procedure ] O2 Sat by Pulse Oximetry [Post -Procedure] 05/13/19 05/13/19 05/13/19 13:32 13:37 13:40 Temperature Pulse Rate Pulse Rate [ Anterior Bilateral Throughout] Pulse Rate [ 66 69 67 Intra-Procedure ] Pulse Rate [ Post-Procedure] Pulse Rate [ Posterior Bilateral Throughout] Respiratory Rate Respiratory Rate [Anterior Bilateral Throughout] Respiratory 20 20 18 Rate [Intra- Procedure] Respiratory Rate [Post- Procedure] Respiratory Rate [Posterior Bilateral Throughout] Blood Pressure Blood Pressure 146/84 145/74 154/79 [Intra- Procedure] Blood Pressure [Post-Procedure ] O2 Sat by Pulse Oximetry O2 Sat by Pulse 98 91 97 Oximetry [ Intra-Procedure ] O2 Sat by Pulse Oximetry [Post -Procedure] 05/13/19 05/13/19 05/13/19 13:46 13:50 14:06 Temperature Pulse Rate Pulse Rate [ Anterior Bilateral Throughout] Pulse Rate [ 60 65 Intra-Procedure ] Pulse Rate [ 63 Post-Procedure] Pulse Rate [ Posterior Bilateral Throughout] Respiratory Rate Respiratory Rate [Anterior Bilateral Throughout] Respiratory 20 20 Rate [Intra- Procedure] Respiratory 16 Rate [Post- Procedure] Respiratory Rate [Posterior Bilateral Throughout] Blood Pressure Blood Pressure 156/76 141/74 [Intra- Procedure] Blood Pressure 153/74 [Post-Procedure ] O2 Sat by Pulse Oximetry O2 Sat by Pulse 99 99 Oximetry [ Intra-Procedure ] O2 Sat by Pulse 99 Oximetry [Post -Procedure] Constitutional: no acute distress, alert Eyes: non-icteric ENT: oropharynx moist Neck: supple Effort: normal Ascultation: Bilateral: other (prolonged expiratory phase) Cardiovascular: regular rate and rhythm Gastrointestinal: normoactive bowel sounds, soft Integumentary: normal Extremities: no cyanosis, no edema Neurologic: normal mental status, non-focal exam, pupils equal and round Psychiatric: mood appropriate CBC and BMP: 05/11/19 02:35 05/11/19 02:35 ABG, PT/INR, D-dimer: PT/INR, D-dimer PT 14.6 Sec. (12.2-14.9) 05/10/19 13:39 INR 1.12 (0.87-1.13) 05/10/19 13:39 Abnormal lab findings: Abnormal Labs 05/10/19 05/10/19 05/11/19 12:16 13:58 02:35 WBC 4.4 L Hgb 14.8 H Hct 44.0 H Lymph % (Auto) 40.5 H 13.1 L [place] % (Auto) 13.8 H Baso % (Auto) 2.7 H Lymph # 0.9 L Seg Neutrophils % 79.7 H Chloride Creatinine Glucose Albumin 3.7 L 05/11/19 02:35 WBC Hgb Hct Lymph % (Auto) [place] % (Auto) Baso % (Auto) Lymph # Seg Neutrophils % Chloride 107.9 H Creatinine 0.6 L Glucose 125 H Albumin 3.8 L Chest x-ray: report reviewed, image reviewed Additional Studies: cHEST XRAY DONE 05/11/19 MPRESSION: 1. Small right apical pneumothorax slightly larger. 2. Improving atelectasis right base. 3. Increasing atelectasis left base.
--- NOTE | 2019-05-13 15:32 | Progress Note ---
Assessment and Plan 79 yo f with spontaneous right pneumothorax s/p CT guided chest tube placement 05/13/19 Plan: 1. continue incentive spirometry, deep breathing exercises 2. Pulmonary toilet 3. smoking cessation 4. Keep chest tube [id number] suction via pleurevac - SUCTION SHOULD BE CONTINUOUS! Discussed with RN 5. Repeat CXR in am tomorrow 6. Pulm on board. 7. Ibuprofen 800mg PO q8H prn for pain 8. bowel regimen for constipation 9. reserve IV pain medications for severe or breakthrough pain Discussed plan with patient's RN. Plan discussed with patient and family at bedside. Thank you, please call with questions. Subjective Date of service: 05/13/19 Narrative: Pt seen and examined. No acute complaints. States she got out of bed last night to use the restroom and chest tube came out. No SOB. NO CP. Had CT replaced by Dr. Mclain via CT guidance. Objective Vital Signs - 12hr 05/13/19 05/13/19 05/13/19 08:17 09:37 10:14 Temperature 98.2 F Pulse Rate 90 Pulse Rate [ 80 Anterior Bilateral Throughout] Pulse Rate [ Intra-Procedure ] Pulse Rate [ Post-Procedure] Pulse Rate [ 82 Posterior Bilateral Throughout] Respiratory 18 Rate Respiratory 18 Rate [Anterior Bilateral Throughout] Respiratory Rate [Intra- Procedure] Respiratory Rate [Post- Procedure] Respiratory 18 Rate [Posterior Bilateral Throughout] Blood Pressure 149/79 Blood Pressure [Intra- Procedure] Blood Pressure [Post-Procedure ] O2 Sat by Pulse 97 97 Oximetry O2 Sat by Pulse Oximetry [ Intra-Procedure ] O2 Sat by Pulse Oximetry [Post -Procedure] 05/13/19 05/13/19 05/13/19 13:16 13:27 13:32 Temperature Pulse Rate Pulse Rate [ Anterior Bilateral Throughout] Pulse Rate [ 73 65 66 Intra-Procedure ] Pulse Rate [ Post-Procedure] Pulse Rate [ Posterior Bilateral Throughout] Respiratory Rate Respiratory Rate [Anterior Bilateral Throughout] Respiratory 20 18 20 Rate [Intra- Procedure] Respiratory Rate [Post- Procedure] Respiratory Rate [Posterior Bilateral Throughout] Blood Pressure Blood Pressure 169/76 140/72 146/84 [Intra- Procedure] Blood Pressure [Post-Procedure ] O2 Sat by Pulse Oximetry O2 Sat by Pulse 100 98 98 Oximetry [ Intra-Procedure ] O2 Sat by Pulse Oximetry [Post -Procedure] 05/13/19 05/13/1905/13/19 13:37 13:40 13:46 Temperature Pulse Rate Pulse Rate [ Anterior Bilateral Throughout] Pulse Rate [ 69 67 60 Intra-Procedure ] Pulse Rate [ Post-Procedure] Pulse Rate [ Posterior Bilateral Throughout] Respiratory Rate Respiratory Rate [Anterior Bilateral Throughout] Respiratory 20 18 20 Rate [Intra- Procedure] Respiratory Rate [Post- Procedure] Respiratory Rate [Posterior Bilateral Throughout] Blood Pressure Blood Pressure 145/74 154/79 156/76 [Intra- Procedure] Blood Pressure [Post-Procedure ] O2 Sat by Pulse Oximetry O2 Sat by Pulse 91 97 99 Oximetry [ Intra-Procedure ] O2 Sat by Pulse Oximetry [Post -Procedure] 05/13/19 05/13/19 13:50 14:06 Temperature Pulse Rate Pulse Rate [ Anterior Bilateral Throughout] Pulse Rate [ 65 Intra-Procedure ] Pulse Rate [ 63 Post-Procedure] Pulse Rate [ Posterior Bilateral Throughout] Respiratory Rate Respiratory Rate [Anterior Bilateral Throughout] Respiratory 20 Rate [Intra- Procedure] Respiratory 16 Rate [Post- Procedure] Respiratory Rate [Posterior Bilateral Throughout] Blood Pressure Blood Pressure 141/74 [Intra- Procedure] Blood Pressure 153/74 [Post-Procedure ] O2 Sat by Pulse Oximetry O2 Sat by Pulse 99 Oximetry [ Intra-Procedure ] O2 Sat by Pulse 99 Oximetry [Post -Procedure] - General physical appearance Narrative Exam: Gen: AAOx3. NAD CV: S1, S2+ resp: even and unlabored. R chest tube (anterior) in place with dressing c/d/i. On suction via pleurevac. No leak Ext: no c/c/e - Labs 05/11/19 02:35 05/11/19 02:35
[2019-05-13] MEDS: HYDROcodone/ACETAMINOPHEN 10-325MG TAB PO PRN ×2 (15:56→22:02)
[2019-05-13] MEDS: HYDROmorphone 1 MG/1 ML INJ IV PRN ×2 (16:00→20:21)
--- NOTE | 2019-05-13 16:18 | Post Operative Note ---
Date of procedure: 05/13/19 Pre-op diagnosis: right-sided pneumothorax, subcutaneous emphysema, pneumomediastinum Post-op diagnosis: same Procedure: CT guided placement of a 10 [place] right-sided chest tube Anesthesia: local (with conscious sedation) Surgeon: GAGE BOUDREAUX Estimated blood loss: minimal Condition: stable Disposition: floor
[2019-05-13] MEDS: NICOTINE 14 MG/24 HR PATCH TD SCH (21:59)
[2019-05-13] MEDS: PRAVASTATIN 80 MG TAB PO SCH (21:59)
--- NOTE | 2019-05-14 08:25 | XRay Report ---
CHEST 1 VIEW 0723 hours INDICATION / CLINICAL INFORMATION: pneumothorax. COMPARISON: 05/13/2019 FINDINGS: SUPPORT DEVICES: Right Heimlich chest tube terminates at the medial right lung base. HEART / MEDIASTINUM: No significant abnormality. LUNGS / PLEURA: No significant residual right pneumothorax is detected. The lungs are generally clear . ADDITIONAL FINDINGS: Stable moderate right axillary subcutaneous emphysema. IMPRESSION: Right chest tube as described. No significant residual right pneumothorax. Signer Name: Sterling Paige Jr, MD Signed: 05/14/2019 8:20 AM Workstation Name: [id number]
[2019-05-14] MEDS: IPRATROPIUM/ALBUTEROL SULFATE 3 ML AMPUL.NEB IH SCH ×3 (09:07→20:32)
[2019-05-14] MEDS: METOPROLOL TARTRATE 50 MG TAB PO SCH ×2 (09:40→21:41)
[2019-05-14] MEDS: cefTRIAXone/NS 2 GM/100 ML 2 GM/100 ML BAG IV SCH (09:40)
[2019-05-14] MEDS: DOCUSATE SODIUM 100 MG CAP PO SCH ×2 (09:41→21:40)
[2019-05-14] MEDS: HEPARIN 5,000 UNIT/1 ML VIAL SUB-Q SCH ×2 (09:41→21:41)
[2019-05-14] MEDS: POLYETHYLENE GLYCOL 3350 17 GM POWDER PO SCH (09:41)
[2019-05-14] MEDS: ASPIRIN EC 81 MG TAB PO SCH (09:41)
[2019-05-14] MEDS: FAMOTIDINE 20 MG TAB PO SCH ×2 (09:41→21:40)
--- NOTE | 2019-05-14 12:39 | Progress Note ---
Assessment and Plan 79 yo f with spontaneous right pneumothorax s/p CT guided chest tube placement 05/13/19 Plan: 1. continue incentive spirometry, deep breathing exercises 2. Pulmonary toilet 3. smoking cessation 4. Keep chest tube [id number] suction via pleurevac for another 24 hrs 5. Repeat CXR in am tomorrow 6. Pulm on board 7. Ibuprofen 800mg PO q8H prn for pain 8. bowel regimen for constipation 9. reserve IV pain medications for severe or breakthrough pain Explained to patient and daughter at bedside that if pneumothorax does not resolve with the chest tube there is a small possibility she may need to be referred to thoracic surgery. They understand. Thank you, please call with questions. Subjective Date of service: 05/14/19 Narrative: Pt seen and examined. No complaints. No SOB. Objective Vital Signs - 12hr 05/14/19 05/14/19 05/14/19 03:27 08:35 08:41 Temperature 98.5 F 98.0 F Pulse Rate 65 55 L Pulse Rate [ Anterior Bilateral Throughout] Pulse Rate [ Posterior Bilateral Throughout] Respiratory 18 18 18 Rate Respiratory Rate [Anterior Bilateral Throughout] Respiratory Rate [Posterior Bilateral Throughout] Blood Pressure 151/83 154/85 O2 Sat by Pulse 95 98 96 Oximetry 05/14/19 05/14/19 05/14/19 09:07 09:08 10:31 Temperature Pulse Rate 60 Pulse Rate [ 70 Anterior Bilateral Throughout] Pulse Rate [ 63 Posterior Bilateral Throughout] Respiratory Rate Respiratory 18 Rate [Anterior Bilateral Throughout] Respiratory 18 Rate [Posterior Bilateral Throughout] Blood Pressure O2 Sat by Pulse 99 Oximetry - General physical appearance Narrative Exam: Gen: AAOx3. NAD CV: S1, S2+ resp: even and unlabored. Bilateral breath sounds equal. Minimal crepitus of chest wall. Chest tube in place on right without leak, on [id number] suction. Abd: soft, NT Ext: no c/c/e - Labs 05/11/19 02:35 05/11/19 02:35
--- NOTE | 2019-05-14 12:45 | Progress Note ---
Assessment and Plan Patient alert, awake resting on room air. oxygen saturation 99%. patient is afebrile with no leukocytosis.Patient admitted for right pneumothorax. Patient has right chest tube placement. CXR showing expansion of the right lung. No acute respiratory distress. patient has a history of smoking 3 cigarettes/day for 45 years and counseled to stop smoking. Patient retired from working in [employer]. she is a with 4 children. No known drug allergies. - Patient Problems (1) Pneumothorax on right Current Visit: Yes Status: Acute Plan to address problem: Right chest tube placement. Right lung appears to be expanded (2) Coronary artery disease Current Visit: Yes Status: Chronic Plan to address problem: Management as per primary care team (3) Nicotine dependence Current Visit: Yes Status: Chronic Plan to address problem: Urgent Care to stop smoking Subjective Date of service: 05/14/19 Interval history: patient alert, awake resting on room air. oxygen saturation 99%. patient is afebrile with no leukocytosis.Patient admitted for right pneumothorax. Patient has right chest tube placement. CXR showing expansion of the right lung. No acute respiratory distress. patient has a history of smoking 3 cigarettes/day for 45 years and counseled to stop smoking. Patient retired from working in [employer]. she is a with 4 children. No known drug allergies. Objective Vital Signs - 12hr 05/14/19 05/14/19 05/14/19 03:27 08:35 08:41 Temperature 98.5 F 98.0 F Pulse Rate 65 55 L Pulse Rate [ Anterior Bilateral Throughout] Pulse Rate [ Posterior Bilateral Throughout] Respiratory 18 18 18 Rate Respiratory Rate [Anterior Bilateral Throughout] Respiratory Rate [Posterior Bilateral Throughout] Blood Pressure 151/83 154/85 O2 Sat by Pulse 95 98 96 Oximetry 05/14/19 05/14/19 05/14/19 09:07 09:08 10:31 Temperature Pulse Rate 60 Pulse Rate [ 70 Anterior Bilateral Throughout] Pulse Rate [ 63 Posterior Bilateral Throughout] Respiratory Rate Respiratory 18 Rate [Anterior Bilateral Throughout] Respiratory 18 Rate [Posterior Bilateral Throughout] Blood Pressure O2 Sat by Pulse 99 Oximetry Constitutional: no acute distress, alert Eyes: non-icteric ENT: oropharynx moist Neck: supple Effort: normal Ascultation: Bilateral: other (prolonged expiratory phase) Cardiovascular: regular rate and rhythm Gastrointestinal: normoactive bowel sounds, soft Integumentary: normal Extremities: no cyanosis, no edema Neurologic: normal mental status, non-focal exam, pupils equal and round Psychiatric: mood appropriate CBC and BMP: 05/11/19 02:35 05/11/19 02:35 ABG, PT/INR, D-dimer: PT/INR, D-dimer PT 14.6 Sec. (12.2-14.9) 05/10/19 13:39 INR 1.12 (0.87-1.13) 05/10/19 13:39 Abnormal lab findings: Abnormal Labs 05/10/19 05/10/19 05/11/19 12:16 13:58 02:35 WBC 4.4 L Hgb 14.8 H Hct 44.0 H Lymph % (Auto) 40.5 H 13.1 L [place] % (Auto) 13.8 H Baso % (Auto) 2.7 H Lymph # 0.9 L Seg Neutrophils % 79.7 H Chloride Creatinine Glucose Albumin 3.7 L 05/11/19 02:35 WBC Hgb Hct Lymph % (Auto) [place] % (Auto) Baso % (Auto) Lymph # Seg Neutrophils % [place] 107.9 H Creatinine 0.6 L Glucose 125 H Albumin 3.8 L Chest x-ray: report reviewed (Chest tube in place. No residual pneumothorax. Right S/C emphysema..), image reviewed
[2019-05-14] MEDS: HYDROmorphone 1 MG/1 ML INJ IV PRN (12:49)
--- NOTE | 2019-05-14 15:43 | Progress Note ---
Assessment and Plan atient alert, awake resting on room air. oxygen saturation 99%. patient is afebrile with no leukocytosis.Patient admitted for right pneumothorax. Patient has right chest tube placement. Patients chest tube came out. Reinserted right chest tube by Dr. BOUDREAUX. Attached the chest tube to suction. No acute respiratory distress. patient has a history of smoking 3 cigarettes/day for 45 years and counseled to stop smoking. Patient retired from working in [employer]. she is a with 4 children. No known drug allergies. - Patient Problems (1) Pneumothorax on right Current Visit: Yes Status: Acute Plan to address problem: Right chest Reinserted again. Right lung appears to be expanded. Chest tube attached to wall suction. (2) Coronary artery disease Current Visit: Yes Status: Chronic Qualifiers: Coronary Disease-Associated Artery/Lesion type: [place] artery [place] vs. transplanted heart: [place] heart Plan to address problem: Management as per primary care and cardiology. 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 oxygen saturation 99%. patient is afebrile with no leukocytosis.Patient admitted for right pneumothorax. Patient has right chest tube placement. Patients chest tube came out. Reinserted right chest tube by Dr. BOUDREAUX. Attached the chest tube to suction. No acute respiratory distress. patient has a history of smoking 3 cigarettes/day for 45 years and counseled to stop smoking. Patient retired from working in [employer]. she is a with 4 children. No known drug allergies. Objective Vital Signs - 12hr 05/14/19 05/14/19 05/14/19 08:35 08:41 09:07 Temperature 98.0 F Pulse Rate 55 L Pulse Rate [ 70 Anterior Bilateral Throughout] Pulse Rate [ 63 Posterior Bilateral Throughout] Respiratory 18 18 Rate Respiratory 18 Rate [Anterior Bilateral Throughout] Respiratory 18 Rate [Posterior Bilateral Throughout] Blood Pressure 154/85 O2 Sat by Pulse 98 96 Oximetry 05/14/19 05/14/19 09:08 10:31 Temperature Pulse Rate 60 Pulse Rate [ Anterior Bilateral Throughout] Pulse Rate [ Posterior Bilateral Throughout] Respiratory Rate Respiratory Rate [Anterior Bilateral Throughout] Respiratory Rate [Posterior Bilateral Throughout] Blood Pressure O2 Sat by Pulse 99 Oximetry Constitutional: no acute distress, alert Eyes: non-icteric ENT: oropharynx moist Neck: supple Effort: normal Ascultation: Bilateral: other (prolonged expiratory phase) Cardiovascular: regular rate and rhythm Gastrointestinal: normoactive bowel sounds, soft Integumentary: normal Extremities: no cyanosis, no edema Neurologic: normal mental status, non-focal exam, pupils equal and round Psychiatric: mood appropriate CBC and BMP: 05/11/19 02:35 05/11/19 02:35 ABG, PT/INR, D-dimer: PT/INR, D-dimer PT 14.6 Sec. (12.2-14.9) 05/10/19 13:39 INR 1.12 (0.87-1.13) 05/10/19 13:39 Abnormal lab findings: Abnormal Labs 05/10/19 05/10/19 05/11/19 12:16 13:58 02:35 WBC 4.4 L Hgb 14.8 H Hct 44.0 H Lymph % (Auto) 40.[address] % (Auto) 13.8 H Baso % (Auto) 2.7 H Lymph # 0.9 L Seg Neutrophils % 79.7 H Chloride Creatinine Glucose Albumin 3.7 L 05/11/19 02:35 WBC Hgb Hct Lymph % (Auto) [place] % (Auto) Baso % (Auto) Lymph # Seg Neutrophils % [place] 107.9 H Creatinine 0.6 L Glucose 125 H Albumin 3.8 L Chest x-ray: report reviewed (Right chest tube present. No residual pneumothorax.), image reviewed
[2019-05-14] MEDS: ONDANSETRON 4 MG/2 ML INJ IV PRN (16:25)
[2019-05-14] MEDS: PRAVASTATIN 80 MG TAB PO SCH (21:40)
[2019-05-14] MEDS: NICOTINE 14 MG/24 HR PATCH TD SCH (21:40)
[2019-05-15] MEDS: ALUM-MAG HYDROXIDE-SIMETHICONE 200-200-20MG/5ML ORAL LIQD 30 ML PO PRN (06:44)
[2019-05-15] MEDS: IPRATROPIUM/ALBUTEROL SULFATE 3 ML AMPUL.NEB IH SCH ×3 (07:55→20:26)
--- NOTE | 2019-05-15 07:55 | XRay Report ---
CHEST 1 VIEW INDICATION: pneumothorax. COMPARISON: 05/14/2019 FINDINGS: SUPPORT DEVICES: Small bore chest tubes present right hemithorax HEART / MEDIASTINUM: No significant abnormality. LUNGS / PLEURA: Subcutaneous emphysema is present on the right chest wall. No significant pulmonary o r pleural abnormality. No pneumothorax. ADDITIONAL FINDINGS: IMPRESSION: 1. No interval change as compared to previous exam Signer Name: Shan Paz MD Signed: 05/15/2019 7:50 AM Workstation Name: [email or web address]
[2019-05-15] MEDS: DOCUSATE SODIUM 100 MG CAP PO SCH ×2 (10:02→21:55)
[2019-05-15] MEDS: METOPROLOL TARTRATE 50 MG TAB PO SCH ×2 (10:02→21:56)
[2019-05-15] MEDS: HEPARIN 5,000 UNIT/1 ML VIAL SUB-Q SCH ×2 (10:02→21:56)
[2019-05-15] MEDS: cefTRIAXone/NS 2 GM/100 ML 2 GM/100 ML BAG IV SCH (10:02)
[2019-05-15] MEDS: POLYETHYLENE GLYCOL 3350 17 GM POWDER PO SCH (10:02)
[2019-05-15] MEDS: ASPIRIN EC 81 MG TAB PO SCH (10:03)
[2019-05-15] MEDS: FAMOTIDINE 20 MG TAB PO SCH ×2 (10:03→21:55)
[2019-05-15] MEDS: HYDROcodone/ACETAMINOPHEN 10-325MG TAB PO PRN ×3 (10:10→20:04)
--- NOTE | 2019-05-15 11:27 | Progress Note ---
Assessment and Plan patient alert, awake resting on room air. oxygen saturation 99%. patient is afebrile with no leukocytosis.Patient admitted for right pneumothorax. Patient has right chest tube placement. Patients chest tube came out. Reinserted right chest tube by Dr. BOUDREAUX yesterday. Attached the chest tube to suction. No acute respiratory distress. patient has a history of smoking 3 cigarettes/day for 45 years and counseled to stop smoking. Patient retired from working in [employer]. she is a with 4 children. No known drug allergies. . - Patient Problems (1) Pneumothorax on right Current Visit: Yes Status: Acute Plan to address problem: Right chest Reinserted again. Right lung appears to be expanded. Chest tube attached to wall suction. (2) Coronary artery disease Current Visit: Yes Status: Chronic Qualifiers: Coronary Disease-Associated Artery/Lesion type: [place] artery [place] vs. transplanted heart: [place] heart Plan to address problem: Management as per primary care and cardiology. 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 oxygen saturation 99%. patient is afebrile with no leukocytosis.Patient admitted for right pneumothorax. Patient has right chest tube placement. Patients chest tube came out. Reinserted right chest tube by Dr. BOUDREAUX yesterday. Attached the chest tube to suction. No acute respiratory distress. patient has a history of smoking 3 cigarettes/day for 45 years and counseled to stop smoking. Patient retired from working in [employer]. she is a with 4 children. No known drug allergies. Objective Vital Signs - 12hr 05/15/19 05/15/19 05/15/19 00:09 03:44 04:54 Temperature 98.4 F 98.4 F Pulse Rate 72 63 70 Pulse Rate [ Anterior Bilateral Throughout] Respiratory 20 20 Rate Respiratory Rate [Anterior Bilateral Throughout] Blood Pressure 153/83 136/72 O2 Sat by Pulse 97 98 Oximetry 05/15/19 05/15/19 05/15/19 07:23 07:30 07:57 Temperature 98.9 F Pulse Rate 67 Pulse Rate [ 74 Anterior Bilateral Throughout] Respiratory 20 20 Rate Respiratory 20 Rate [Anterior Bilateral Throughout] Blood Pressure 130/71 O2 Sat by Pulse 92 Oximetry 05/15/19 05/15/19 07:58 10:59 Temperature Pulse Rate 65 Pulse Rate [ Anterior Bilateral Throughout] Respiratory Rate Respiratory Rate [Anterior Bilateral Throughout] Blood Pressure O2 Sat by Pulse 98 Oximetry Constitutional: no acute distress, alert Eyes: non-icteric ENT: oropharynx moist Neck: supple Effort: normal Ascultation: Bilateral: other (prolonged expiratory phase) Cardiovascular: regular rate and rhythm Gastrointestinal: normoactive bowel sounds, soft Integumentary: normal Extremities: no cyanosis, no edema Neurologic: normal mental status, non-focal exam, pupils equal and round Psychiatric: mood appropriate CBC and BMP: 05/11/19 02:35 05/11/19 02:35 ABG, PT/INR, D-dimer: PT/INR, D-dimer PT 14.6 Sec. (12.2-14.9) 05/10/19 13:39 INR 1.12 (0.87-1.13) 05/10/19 13:39 Abnormal lab findings: Abnormal Labs 05/10/19 05/10/19 05/11/19 12:16 13:58 02:35 WBC 4.4 L Hgb 14.8 H Hct 44.0 H Lymph % (Auto) 40.5 H 13.1 L [place] % (Auto) 13.8 H Baso % (Auto) 2.7 H Lymph # 0.9 L Seg Neutrophils % 79.7 H Chloride Creatinine Glucose Albumin 3.7 L 05/11/19 02:35 WBC Hgb Hct Lymph % (Auto) [place] % (Auto) Baso % (Auto) Lymph # Seg Neutrophils % [place] 107.9 H Creatinine 0.6 L Glucose 125 H Albumin 3.8 L Chest x-ray: report reviewed (Right sided S/C emphysema. No pneumothorax.), image reviewed
--- NOTE | 2019-05-15 12:44 | Progress Note ---
Assessment and Plan - Patient Problems (1) Pneumothorax on right Current Visit: Yes Status: Acute Plan to address problem: Patient has chest tube with waterseal Duo nebs 4 times daily and as needed Pulmonary consult requested (2) Coronary artery disease Current Visit: Yes Status: Chronic Qualifiers: Coronary Disease-Associated Artery/Lesion type: [place] artery [place] vs. transplanted heart: [place] heart Plan to address problem: On aspirin 81 mg once a day (3) Nicotine dependence Current Visit: Yes Status: Chronic Qualifiers: Nicotine product type: cigarettes Plan to address problem: Patient counseled about stopping smoking NicoDerm patch (4) DVT prophylaxis Current Visit: Yes Status: Acute Plan to address problem: On heparin and GI prophylaxis Subjective Date of service: 05/14/19 Principal diagnosis: Right pneumothorax Objective - Exam Narrative Exam: Lying in bed in slight distress, chest tube in place on the right side - Constitutional Vitals: Vital Signs - 12hr 05/15/19 05/15/19 05/15/19 03:44 04:54 07:23 Temperature 98.4 F Pulse Rate 63 70 Pulse Rate [ Anterior Bilateral Throughout] Respiratory 20 20 Rate Respiratory Rate [Anterior Bilateral Throughout] Blood Pressure 136/72 O2 Sat by Pulse 98 Oximetry 05/15/19 05/15/19 05/15/19 07:30 07:57 07:58 Temperature 98.9 F Pulse Rate 67 Pulse Rate [ 74 Anterior Bilateral Throughout] Respiratory 20 Rate Respiratory 20 Rate [Anterior Bilateral Throughout] Blood Pressure 130/71 O2 Sat by Pulse 92 98 Oximetry 05/15/19 10:59 Temperature Pulse Rate 65 Pulse Rate [ Anterior Bilateral Throughout] Respiratory Rate Respiratory Rate [Anterior Bilateral Throughout] Blood Pressure O2 Sat by Pulse Oximetry General appearance: Present: no acute distress, well-nourished - EENT Eyes: PERRL, EOM intact ENT: hearing intact, clear oral mucosa Ears: bilateral: normal - Neck Neck: supple, normal ROM - Respiratory Respiratory effort: normal Respiratory: bilateral: CTA - Breasts Breasts: normal - Cardiovascular Heart rate: 78 Rhythm: regular Heart Sounds: Present: S1 & S2. Absent: gallop, rub Extremities: pulses intact, No edema, normal color, Full ROM - Gastrointestinal General gastrointestinal: Present: soft, non-tender, non-distended, normal bowel sounds - Genitourinary Female genitourinary: normal - Integumentary Integumentary: clear, warm, dry - Musculoskeletal Musculoskeletal: 1, strength equal bilaterally - Neurologic Neurologic: moves all extremities - Psychiatric Psychiatric: memory intact, appropriate mood/affect, intact judgment & insight - Labs CBC & Chem 7: 05/11/19 02:35 05/11/19 02:35
--- NOTE | 2019-05-15 12:53 | Progress Note ---
Assessment and Plan - Patient Problems (1) Pneumothorax on right Current Visit: Yes Status: Acute Plan to address problem: 79 yo f with spontaneous right pneumothorax s/p CT guided chest tube placement 05/13/19 Patient has chest tube with waterseal Duo nebs 4 times daily and as needed Pulmonary consult appreciated 1. continue incentive spirometry, deep breathing exercises 2. Pulmonary toilet 3. smoking cessation 4. Keep chest tube [id number] suction via pleurevac for another 24 hrs 5. Repeat CXR (2) Coronary artery disease Current Visit: Yes Status: Chronic Qualifiers: Coronary Disease-Associated Artery/Lesion type: [place] artery [place] vs. transplanted heart: [place] heart Plan to address problem: On aspirin 81 mg once a day (3) Nicotine dependence Current Visit: Yes Status: Chronic Qualifiers: Nicotine product type: cigarettes Plan to address problem: Patient counseled about stopping smoking NicoDerm patch (4) DVT prophylaxis Current Visit: Yes Status: Acute Plan to address problem: On heparin and GI prophylaxis Subjective Date of service: 05/15/19 Principal diagnosis: Right pneumothorax Interval history: Patient is a 79-year-old -[place] woman with a history of coronary artery disease with stent and tobacco dependency who presents to [facility] ED with chest pains and shortness of breath. In the emergency room, patient was found to have a right severe pneumothorax and had a chest tube placed by the ER physician. Some relief of symptoms after the chest tube was placed. Patient attributes it to severe sneezing 2 days prior to admission. Objective - Exam Narrative Exam: Lying in bed in slight distress, chest tube in place on the right side - Constitutional Vitals: Vital Signs - 12hr 05/15/19 05/15/19 05/15/19 03:44 04:54 07:23 Temperature 98.4 F Pulse Rate 63 70 Pulse Rate [ Anterior Bilateral Throughout] Respiratory 20 20 Rate Respiratory Rate [Anterior Bilateral Throughout] Blood Pressure 136/72 O2 Sat by Pulse 98 Oximetry 05/15/19 05/15/19 05/15/19 07:30 07:57 07:58 Temperature 98.9 F Pulse Rate 67 Pulse Rate [ 74 Anterior Bilateral Throughout] Respiratory 20 Rate Respiratory 20 Rate [Anterior Bilateral Throughout] Blood Pressure 130/71 O2 Sat by Pulse 92 98 Oximetry 05/15/19 10:59 Temperature Pulse Rate 65 Pulse Rate [ Anterior Bilateral Throughout] Respiratory Rate Respiratory Rate [Anterior Bilateral Throughout] Blood Pressure O2 Sat by Pulse Oximetry General appearance: Present: no acute distress, well-nourished - EENT Eyes: PERRL, EOM intact ENT: hearing intact, clear oral mucosa Ears: bilateral: normal - Neck Neck: supple, normal ROM - Respiratory Respiratory effort: normal Respiratory: bilateral: CTA - Breasts Breasts: normal - Cardiovascular Rhythm: regular Heart Sounds: Present: S1 & S2. Absent: gallop, rub Extremities: pulses intact, No edema, normal color, Full ROM - Gastrointestinal General gastrointestinal: Present: soft, non-tender, non-distended, normal bowel sounds - Genitourinary Female genitourinary: normal - Integumentary Integumentary: clear, warm, dry - Musculoskeletal Musculoskeletal: 1, strength equal bilaterally - Neurologic Neurologic: moves all extremities - Psychiatric Psychiatric: memory intact, appropriate mood/affect, intact judgment & insight - Labs CBC & Chem 7: 05/11/19 02:35 05/11/19 02:35
--- NOTE | 2019-05-15 14:09 | Progress Note ---
Assessment and Plan - Patient Problems (1) Pneumothorax on right Current Visit: Yes Status: Acute Plan to address problem: 79 yo f with spontaneous right pneumothorax s/p CT guided chest tube placement 05/13/19 Plan: 1. continue incentive spirometry, deep breathing exercises 2. Pulmonary toilet 3. smoking cessation 4. CT to waterseal today 5. Repeat CXR in am tomorrow 6. Pulm on board 7. Ibuprofen 800mg PO q8H prn for pain 8. bowel regimen for constipation 9. reserve IV pain medications for severe or breakthrough pain Thank you, please call with questions. Subjective Date of service: 05/15/19 Patient Reports: Positive: no new complaints, feels better. Negative: shortness of breath Objective Vital Signs - 12hr 05/15/19 05/15/19 05/15/19 03:44 04:54 07:23 Temperature 98.4 F Pulse Rate 63 70 Pulse Rate [ Anterior Bilateral Throughout] Respiratory 20 20 Rate Respiratory Rate [Anterior Bilateral Throughout] Blood Pressure 136/72 O2 Sat by Pulse 98 Oximetry 05/15/19 05/15/19 05/15/19 07:30 07:57 07:58 Temperature 98.9 F Pulse Rate 67 Pulse Rate [ 74 Anterior Bilateral Throughout] Respiratory 20 Rate Respiratory 20 Rate [Anterior Bilateral Throughout] Blood Pressure 130/71 O2 Sat by Pulse 92 98 Oximetry 05/15/19 05/15/19 05/15/19 10:59 11:47 13:30 Temperature 98.7 F Pulse Rate 65 67 Pulse Rate [ 76 Anterior Bilateral Throughout] Respiratory 19 Rate Respiratory 20 Rate [Anterior Bilateral Throughout] Blood Pressure 133/76 O2 Sat by Pulse 97 Oximetry - General physical appearance no distress, no pain, other (looks well) - Eyes normal occular movement - Respiratory normal expansion, normal respiratory effort, clear to auscultation, other (no airleak) - Psychiatric oriented to time, oriented to person, oriented to place, speech is normal, memory intact - Labs 05/11/19 02:35 05/11/19 02:35
[2019-05-15] MEDS: PRAVASTATIN 80 MG TAB PO SCH (21:55)
[2019-05-15] MEDS: NICOTINE 14 MG/24 HR PATCH TD SCH (21:56)
[2019-05-16] MEDS: HYDROcodone/ACETAMINOPHEN 10-325MG TAB PO PRN ×2 (04:29→09:48)
[2019-05-16] MEDS: ALUM-MAG HYDROXIDE-SIMETHICONE 200-200-20MG/5ML ORAL LIQD 30 ML PO PRN (04:35)
[2019-05-16] MEDS: IPRATROPIUM/ALBUTEROL SULFATE 3 ML AMPUL.NEB IH SCH ×3 (08:30→20:42)
--- NOTE | 2019-05-16 08:39 | XRay Report ---
CHEST - 1 VIEW INDICATION: pneumothorax COMPARISON: 05/15/2019 FINDINGS: Support devices: Stable position of the right chest tube. Heart: Stable cardiomediastinal silhouette. Lungs/pleura: Minor bibasilar atelectatic changes are noted and appear relatively stable. No consoli dation, pleural effusion or pneumothorax has developed. Additional findings: Right axillary subcutaneous emphysema is unchanged. IMPRESSION: Unchanged exam. Signer Name: Sterling Paige Jr, MD Signed: 05/16/2019 8:35 AM Workstation Name: [id number]
[2019-05-16] MEDS: METOPROLOL TARTRATE 50 MG TAB PO SCH ×2 (09:47→23:17)
[2019-05-16] MEDS: FAMOTIDINE 20 MG TAB PO SCH ×2 (09:47→23:17)
[2019-05-16] MEDS: ASPIRIN EC 81 MG TAB PO SCH (09:47)
[2019-05-16] MEDS: DOCUSATE SODIUM 100 MG CAP PO SCH ×2 (09:47→23:17)
[2019-05-16] MEDS: POLYETHYLENE GLYCOL 3350 17 GM POWDER PO SCH (09:48)
[2019-05-16] MEDS: HEPARIN 5,000 UNIT/1 ML VIAL SUB-Q SCH ×2 (09:48→23:18)
[2019-05-16] MEDS: cefTRIAXone/NS 2 GM/100 ML 2 GM/100 ML BAG IV SCH (09:49)
--- NOTE | 2019-05-16 11:52 | Progress Note ---
Assessment and Plan Patient alert, awake resting on room air. oxygen saturation 99%. No complaints of chest pain, SOB or cough. patient is afebrile with no leukocytosis. Patient admitted for right pneumothorax. R chest tube placement. todays CXR reported no pneumothorax, complete expansion of the right lung. General surgery planning to take out the chest tube today. - Patient Problems (1) Pneumothorax on right Current Visit: Yes Status: Acute Plan to address problem: Right lung appears to be expanded. Right Chest tube inserted, general surgery is planning to remove the chest tube today. (2) Coronary artery disease Current Visit: Yes Status: Chronic Qualifiers: Coronary Disease-Associated Artery/Lesion type: [place] artery [place] vs. transplanted heart: [place] heart Plan to address problem: Management as per primary care and cardiology. 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 oxygen saturation 99%. No complaints of chest pain, SOB or cough. patient is afebrile with no leukocytosis. Patient admitted for right pneumothorax. R chest tube placement. todays CXR reported no pneumothorax, complete expansion of the right lung. General surgery planning to take out the chest tube today. Objective Vital Signs - 12hr 05/16/19 05/16/19 05/16/19 05:55 05:56 08:00 Temperature 97.6 F Pulse Rate 65 Pulse Rate [ 74 Anterior Bilateral Throughout] Respiratory 18 Rate Respiratory 20 Rate [Anterior Bilateral Throughout] Blood Pressure 159/79 O2 Sat by Pulse 99 Oximetry 05/16/19 05/16/19 05/16/19 08:24 08:33 09:47 Temperature 97.6 F Pulse Rate 63 76 Pulse Rate [ Anterior Bilateral Throughout] Respiratory 18 Rate Respiratory Rate [Anterior Bilateral Throughout] Blood Pressure 168/77 154/7 O2 Sat by Pulse 97 99 Oximetry 05/16/19 09:48 Temperature Pulse Rate Pulse Rate [ Anterior Bilateral Throughout] Respiratory 20 Rate Respiratory Rate [Anterior Bilateral Throughout] Blood Pressure O2 Sat by Pulse Oximetry Constitutional: no acute distress, alert Eyes: non-icteric ENT: oropharynx moist Neck: supple Effort: normal Ascultation: Bilateral: other (prolonged expiratory phase) Cardiovascular: regular rate and rhythm Gastrointestinal: normoactive bowel sounds, soft Integumentary: normal Extremities: no cyanosis, no edema Neurologic: normal mental status, non-focal exam, pupils equal and round Psychiatric: mood appropriate CBC and BMP: 05/11/19 02:35 05/11/19 02:35 ABG, PT/INR, D-dimer: PT/INR, D-dimer PT 14.6 Sec. (12.2-14.9) 05/10/19 13:39 INR 1.12 (0.87-1.13) 05/10/19 13:39 Abnormal lab findings: Abnormal Labs 05/10/19 05/10/19 05/11/19 12:16 13:58 02:35 WBC 4.4 L Hgb 14.8 H Hct 44.0 H Lymph % (Auto) 40.5 H 13.1 L [place] % (Auto) 13.8 H Baso % (Auto) 2.7 H Lymph # 0.9 L Seg Neutrophils % 79.7 H Chloride Creatinine Glucose Albumin 3.7 L 05/11/19 02:35 WBC Hgb Hct Lymph % (Auto) [place] % (Auto) Baso % (Auto) Lymph # Seg Neutrophils % [place] 107.9 H Creatinine 0.6 L Glucose 125 H Albumin 3.8 L Chest x-ray: report reviewed (complete expansion of the right lung, no pneumothorax reported ), image reviewed
--- NOTE | 2019-05-16 13:20 | Progress Note ---
Assessment and Plan - Patient Problems (1) Pneumothorax on right Current Visit: Yes Status: Acute Plan to address problem: 79 yo f with spontaneous right pneumothorax s/p CT guided chest tube placement 05/13/19 Plan: 1. CT removed today 2) CXR in AM. If no PTX, may d/c home. f/u prn. a) If PTX recurs, may need new tube by IR and referral to thoracic surgery Thank you, please call with questions. Subjective Date of service: 05/16/19 Patient Reports: Positive: no new complaints, feels better. Negative: shortness of breath Objective Vital Signs - 12hr 05/16/19 05/16/19 05/16/19 05:55 05:56 08:00 Temperature 97.6 F Pulse Rate 65 Pulse Rate [ 74 Anterior Bilateral Throughout] Respiratory 18 Rate Respiratory 20 Rate [Anterior Bilateral Throughout] Respiratory Rate [Right Back] Blood Pressure 159/79 O2 Sat by Pulse 99 Oximetry 05/16/19 05/16/19 05/16/19 08:24 08:33 09:47 Temperature 97.6 F Pulse Rate 63 76 Pulse Rate [ Anterior Bilateral Throughout] Respiratory 18 Rate Respiratory Rate [Anterior Bilateral Throughout] Respiratory Rate [Right Back] Blood Pressure 168/77 154/7 O2 Sat by Pulse 97 99 Oximetry 05/16/19 05/16/19 09:48 10:00 Temperature Pulse Rate 64 Pulse Rate [ Anterior Bilateral Throughout] Respiratory 20 22 Rate Respiratory Rate [Anterior Bilateral Throughout] Respiratory 20 Rate [Right Back] Blood Pressure O2 Sat by Pulse 99 Oximetry - General physical appearance no distress, no pain, other (looks well) - Respiratory normal expansion, normal respiratory effort - Psychiatric oriented to time, oriented to person, oriented to place, speech is normal, memory intact - Labs 05/11/19 02:35 05/11/19 02:35
--- NOTE | 2019-05-16 16:05 | Progress Note ---
Assessment and Plan - Patient Problems (1) Pneumothorax on right Current Visit: Yes Status: Acute Plan to address problem: 1. CT removed today 2) CXR in AM. If no PTX, may d/c home. f/u prn. If PTX recurs, may need new tube by IR and referral to thoracic surgery (2) Coronary artery disease Current Visit: Yes Status: Chronic Qualifiers: Coronary Disease-Associated Artery/Lesion type: [place] artery [place] vs. transplanted heart: [place] heart Plan to address problem: On aspirin 81 mg once a day (3) Nicotine dependence Current Visit: Yes Status: Chronic Qualifiers: Nicotine product type: cigarettes Plan to address problem: Patient counseled about stopping smoking NicoDerm patch (4) DVT prophylaxis Current Visit: Yes Status: Acute Plan to address problem: On heparin and GI prophylaxis Subjective Date of service: 05/16/19 Principal diagnosis: Right pneumothorax Interval history: Patient is a 79-year-old -[place]iqu[place] woman with a history of coronary artery disease with stent and tobacco dependency who presents to [facility] ED with chest pains and shortness of breath. In the emergency room, patient was found to have a right severe pneumothorax and had a chest tube placed by the ER physician. Some relief of symptoms after the chest tube was placed. Patient attributes it to severe sneezing 2 days prior to admission. Symptomatically better Chest tube removed today Objective - Exam Narrative Exam: Lying in bed in slight distress, chest tube in place on the right side - Constitutional Vitals: Vital Signs - 12hr 05/16/19 05/16/19 05/16/19 05:55 05:56 08:00 Temperature 97.6 F Pulse Rate 65 Pulse Rate [ 74 Anterior Bilateral Throughout] Respiratory 18 Rate Respiratory 20 Rate [Anterior Bilateral Throughout] Respiratory Rate [Right Back] Blood Pressure 159/79 O2 Sat by Pulse 99 Oximetry 05/16/19 05/16/19 05/16/19 08:24 08:33 09:47 Temperature 97.6 F Pulse Rate 63 76 Pulse Rate [ Anterior Bilateral Throughout] Respiratory 18 Rate Respiratory Rate [Anterior Bilateral Throughout] Respiratory Rate [Right Back] Blood Pressure 168/77 154/7 O2 Sat by Pulse 97 99 Oximetry 05/16/19 05/16/19 05/16/19 09:48 10:00 10:48 Temperature Pulse Rate 64 Pulse Rate [ Anterior Bilateral Throughout] Respiratory 20 22 20 Rate Respiratory Rate [Anterior Bilateral Throughout] Respiratory 20 Rate [Right Back] Blood Pressure O2 Sat by Pulse 99 Oximetry 05/16/19 14:00 Temperature Pulse Rate Pulse Rate [ 74 Anterior Bilateral Throughout] Respiratory Rate Respiratory 20 Rate [Anterior Bilateral Throughout] Respiratory Rate [Right Back] Blood Pressure O2 Sat by Pulse Oximetry General appearance: Present: no acute distress, well-nourished - EENT Eyes: PERRL, EOM intact ENT: hearing intact, clear oral mucosa Ears: bilateral: normal - Neck Neck: supple, normal ROM - Respiratory Respiratory effort: normal Respiratory: bilateral: CTA - Breasts Breasts: normal - Cardiovascular Heart rate: 78 Rhythm: regular Heart Sounds: Present: S1 & S2. Absent: gallop, rub Extremities: no ischemia, pulses intact, No edema, normal color, Full ROM - Gastrointestinal General gastrointestinal: Present: soft, non-tender, non-distended, normal bowel sounds - Genitourinary Female genitourinary: normal - Integumentary Integumentary: clear, warm, dry - Musculoskeletal Musculoskeletal: 1, strength equal bilaterally - Neurologic Neurologic: moves all extremities - Psychiatric Psychiatric: memory intact, appropriate mood/affect, intact judgment & insight - Allied health notes Allied health notes reviewed: nursing, case management - Labs CBC & Chem 7: 05/11/19 02:35 05/11/19 02:35
--- NOTE | 2019-05-16 16:22 | Cat Scan Report ---
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 Continuous cardiopulmonary monitoring was utilized. PROCEDURE: Following an explanation of the risks, benefits and alternatives; written informed consent was obtained. The patient was brought to the CT suite and placed in the supine position on the CT table. Informatica CT was performed of the chest. After determining the appropriate site, the skin was infiltrated with lidocaine and a finder needle was placed. Intermittent CT was performed until the desired position was identified. The 18 gauge trocar needle was inserted into the right pleural cavity . Aspiration of gas was performed. J wire was then advanced through the needle and into the pleural cavity. The needle was exchanged for multiple dilators that were used to serially dilate over the wire. A 12 Fr APD drain was advanced over the wire and metal stiffener. The metal stiffener and wire were removed. Final CT scanning was performed. The pigtail was secured and aspirated until no more gas could be aspirated. Sterile bandage was applied. Site secured with multiple silk sutures. The patient tolerated the procedure well. There were no immediate postprocedural complications. FINDINGS: 1. Initial CT demonstrates right-sided subcutaneous emphysema, pneumomediastinum, and small right pneumothorax. This CT was performed for localization purposes, and not diagnostic purposes. There is a satisfactory window for CT drainage. 2. Intermittent CT demonstrates the 18 gauge needle was placed in the small right pneumothorax. 3. Wire is coiled in the right pleural cavity. 4. Final CT documents placement of a 12 Fr drain in the right pleural cavity. IMPRESSION: Successful CT guided right chest tube placement in a right pneumothorax.
[2019-05-16] MEDS: PRAVASTATIN 80 MG TAB PO SCH (23:17)
[2019-05-16] MEDS: NICOTINE 14 MG/24 HR PATCH TD SCH (23:17)
[2019-05-17] MEDS: IPRATROPIUM/ALBUTEROL SULFATE 3 ML AMPUL.NEB IH SCH ×2 (07:41→13:33)
--- NOTE | 2019-05-17 08:57 | XRay Report ---
CHEST 1 VIEW 0719 hours INDICATION / CLINICAL INFORMATION: pneumothorax. COMPARISON: 05/16/2019 FINDINGS: SUPPORT DEVICES: Right chest tube has been removed. HEART / MEDIASTINUM: No significant abnormality. LUNGS / PLEURA: No significant pulmonary or pleural abnormality. No pneumothorax. ADDITIONAL FINDINGS: Slight decrease in the right axillary subcutaneous emphysema. IMPRESSION: Right chest tube has been removed. No recurrent right pneumothorax is detected Signer Name: Sterling Paige Jr, MD Signed: 05/17/2019 8:53 AM Workstation Name: [id number]
[2019-05-17] MEDS: ASPIRIN EC 81 MG TAB PO SCH (09:04)
[2019-05-17] MEDS: FAMOTIDINE 20 MG TAB PO SCH (09:04)
[2019-05-17] MEDS: POLYETHYLENE GLYCOL 3350 17 GM POWDER PO SCH (09:04)
[2019-05-17] MEDS: HEPARIN 5,000 UNIT/1 ML VIAL SUB-Q SCH (09:05)
[2019-05-17] MEDS: DOCUSATE SODIUM 100 MG CAP PO SCH (09:06)
[2019-05-17] MEDS: METOPROLOL TARTRATE 50 MG TAB PO SCH (09:10)
[2019-05-17 09:21] VITALS: BP 136/78
[2019-05-17] MEDS: cefTRIAXone/NS 2 GM/100 ML 2 GM/100 ML BAG IV SCH (09:21)
--- NOTE | 2019-05-17 11:44 | Discharge Summary ---
Providers - Providers Date of Admission: 05/10/19 15:12 Date of discharge: 05/17/19 Attending physician: OMAIRA BENJAMIN 05/10/19 21:24 Consult to Physician [CONS] Routine Comment: Consulting Provider: VAMSI VILLA Physician Instructions: Reason For Exam: Pneumothorax--- right 05/10/19 21:52 Consult to Physician [CONS] Routine Comment: Consulting Provider: CAMILO ZULETA Physician Instructions: Reason For Exam: Pneumothorax 05/13/19 08:17 Consult to Interventional Radiology [CONS] Routine Consulting Provider: GAGE SOLO Reason For Exam: right ptx Place consult to:: Dr. Solo Notified:: - Comment:: Dr. Mclain is aware of consult per note 05/13/19 @[id number] Primary care physician: CHECO WHITE Hospitalization Condition: Stable Pertinent studies: CXR on IMPRESSION: Right chest tube has been removed. No recurrent right pneumothorax is detected CXR 05/10/19 IMPRESSION: Large right pneumothorax. These findings were discussed with the ER doctor (Dr. Smith) at 12:25 on 05/10/2019. Hospital course: 79-year-old -[place] female with history of coronary artery disease and a stent in the past comes in for acute chest pain and shortness of breath since morning. Patient is a smoker. Patient attributes it to severe sneezing 2 evenings ago. No fever or chills. Patient became more short of breath since morning and came to the emergency room. In the emergency room patient was found to have a right severe pneumothorax and had a chest tube placed by the ER physician. Some relief of symptoms after the chest tube was placed. Chest tube renoved on 05/16/19 Patient had Chest Tube In ED Surgery f/u appreciated (1) Pneumothorax on right Current Visit: Yes Status: Acute Plan to address problem: 1. CT removed yesterday 2) CXR - No PTX d/c home. f/u prn. If PTX recurs, may need new tube by IR and referral to thoracic surgery (2) Coronary artery disease Current Visit: Yes Status: Chronic Qualifiers: Coronary Disease-Associated Artery/Lesion type: [place] artery [place] vs. transplanted heart: [place] heart Plan to address problem: On aspirin 81 mg once a day (3) Nicotine dependence Current Visit: Yes Status: Chronic Qualifiers: Nicotine product type: cigarettes Plan to address problem: Patient counseled about stopping smoking NicoDerm patch Disposition: DC-01 TO HOME OR SELFCARE Core Measure Documentation - Palliative Care Palliative Care/ Comfort Measures: Not Applicable - Core Measures Any of the following diagnoses?: none Exam - Constitutional Vitals: Temp Pulse Resp BP Pulse Ox 97.8 F 72 18 136/78 98 05/17/19 07:25 05/17/19 10:00 05/17/19 10:00 05/17/19 09:10 05/17/19 10:00 General appearance: Present: no acute distress, well-nourished - EENT Eyes: Present: PERRL ENT: hearing intact, clear oral mucosa - Neck Neck: Present: supple, normal ROM - Respiratory Respiratory effort: normal Respiratory: bilateral: CTA - Cardiovascular Heart rate: 78 Rhythm: regular Heart Sounds: Present: S1 & S2. Absent: rub, click - Extremities Extremities: no ischemia, pulses symmetrical, No edema Peripheral Pulses: within normal limits - Abdominal General gastrointestinal: Present: soft, non-tender, non-distended, normal bowel sounds Female genitourinary: Present: normal - Integumentary Integumentary: Present: clear, warm, dry - Musculoskeletal Musculoskeletal: gait normal, strength equal bilaterally - Psychiatric Psychiatric: appropriate mood/affect, intact judgment & insight - Neurologic Neurologic: CNII-XII intact, moves all extremities - Allied Health Allied health notes reviewed: nursing, case management Plan Activity: no restrictions Diet: low salt Follow up with: CHECO BREEN MD [Other] - 3-5 Days LELAND ANTONY DO [Staff Physician] - 7 Days
--- NOTE | 2019-05-17 13:05 | Progress Note ---
Assessment and Plan (1) Pneumothorax on right Current Visit: Yes Status: Acute Plan to address problem: s/pRight chest tube placement with resolution (2) Coronary artery disease Current Visit: Yes Status: Chronic Qualifiers: Coronary Disease-Associated Artery/Lesion type: [place] artery [place] vs. transplanted heart: [place] heart Plan to address problem: Management as per primary care team (3) Nicotine dependence/Tobacco use disorder Probable COPD Current Visit: Yes Status: Chronic Qualifiers: Nicotine product type: cigarettes Plan to address problem: Smoking cessation counselling. Discharge planning. Out patient pulmonary follow up on discharge. Subjective Date of service: 05/17/19 Principal diagnosis: Right pneumothorax Interval history: Patient is seen today for: right PTX, COPD; Tobacco use disorder Seen and examined at bedside; 24hour events reviewed; nursing and respiratory care staff consulted; no adverse overnight events reported to me; Doing well. Denies any chest pain, no shortness of breath, no fevers or chills. Scheduled fro discharge today. wants to know if she can get nicotine patches fro discharge Objective Vital Signs - 12hr 05/17/19 05/17/19 05/17/19 03:07 07:25 07:40 Temperature 97.8 F 97.8 F Pulse Rate 69 72 Pulse Rate [ 72 Anterior Bilateral Throughout] Pulse Rate [ From Monitor] Respiratory 20 18 Rate Respiratory 20 Rate [Anterior Bilateral Throughout] Blood Pressure 163/80 131/77 O2 Sat by Pulse 97 96 Oximetry 05/17/19 05/17/19 05/17/19 07:53 09:10 10:00 Temperature Pulse Rate 84 72 Pulse Rate [ Anterior Bilateral Throughout] Pulse Rate [ 72 From Monitor] Respiratory 18 Rate Respiratory Rate [Anterior Bilateral Throughout] Blood Pressure 136/78 O2 Sat by Pulse 98 98 Oximetry Constitutional: no acute distress, alert Eyes: non-icteric ENT: oropharynx moist Neck: supple Effort: normal Ascultation: Bilateral: other (prolonged expiratory phase) Cardiovascular: regular rate and rhythm, other (S1,S2) Gastrointestinal: normoactive bowel sounds, soft Integumentary: normal Extremities: no cyanosis, no edema Neurologic: normal mental status, non-focal exam, pupils equal and round Psychiatric: mood appropriate, affect normal CBC and BMP: 05/11/19 02:35 05/11/19 02:35 ABG, PT/INR, D-dimer: PT/INR, D-dimer PT 14.6 Sec. (12.2-14.9) 05/10/19 13:39 INR 1.12 (0.87-1.13) 05/10/19 13:39 Abnormal lab findings: Abnormal Labs 05/10/19 05/10/19 05/11/19 12:16 13:58 02:35 WBC 4.4 L Hgb 14.8 H Hct 44.0 H Lymph % (Auto) 40.5 H 13.1 L Emm[place] % (Auto) 13.8 H Baso % (Auto) 2.7 H Lymph # 0.9 L Seg Neutrophils % 79.7 H Chloride Creatinine Glucose Albumin 3.7 L 05/11/19 02:35 WBC Hgb Hct Lymph % (Auto) Emm[place] % (Auto) Baso % (Auto) Lymph # Seg Neutrophils % Chloride 107.9 H Creatinine 0.6 L Glucose 125 H Albumin 3.8 L Chest x-ray: image reviewed
== END 2019-05-17 14:15 | disposition home or self-care (01) | DRG 200 ==
LOC: ED 11:15 → 4A 15:12 → 2B-ACE 05-16 21:20
PROVIDERS: ADMIT Internal Medicine; ATTEND Internal Medicine
PROC: 0W9930Z Drainage of Right Pleural Cavity with Drainage Device, Percutaneous Approach (ICD-10-PCS; principal; 2019-05-10)
PROC: 0W29X0Z Change Drainage Device in Right Pleural Cavity, External Approach (ICD-10-PCS; 2019-05-13)
DX: J93.9 Pneumothorax, unspecified (principal); J98.11 Atelectasis; T85.628A Displacement of other specified internal prosthetic devices, implants and grafts, initial encounter; K59.00 Constipation, unspecified; I25.10 Atherosclerotic heart disease of native coronary artery without angina pectoris; I10 Essential (primary) hypertension; F17.210 Nicotine dependence, cigarettes, uncomplicated; J98.2 Interstitial emphysema; J44.9 Chronic obstructive pulmonary disease, unspecified; I25.2 Old myocardial infarction; Z82.49 Family history of ischemic heart disease and other diseases of the circulatory system; Z71.6 Tobacco abuse counseling; Z79.899 Other long term (current) drug therapy; Y84.8 Other medical procedures as the cause of abnormal reaction of the patient, or of later complication, without mention of misadventure at the time of the procedure
CPT/HCPCS: 32551; 36415; 71045; 71046; 80048; 80053; 80076; 80307; 81001; 82550; 82553; 83036; 83735; 83880; 84484; 85025; 85610; 85730; 93005; 93010; 94640; 94760; 96374; 99406; G0378; A9270-GY; C1769; J0696; J1170; J1644; J2250; J2405; J2704; J2765; J3010; J7030; J7040